=== PATIENT | male | born 1965 | race African-American/Black ===

== ENCOUNTER 2024-09-04 19:08 | Inpatient (IN) | payer OTHER, MEDICAID ==
[2024-09-04] VITALS (13 sets, daily range): BP systolic 100–134; BP diastolic 53–83; PULSE 72–144; RESP 16–33; TEMP 99.4–99.9; O2SAT 93–99
[~2024-09-04] VITALS: Ht 182.9 cm; Wt 109.4 kg
[2024-09-04] MEDS: cefTRIAXone 1GM/50ML D5W 50 ML IV ONE (09:00)
[2024-09-04] MEDS ORDERED: SODIUM CHLORIDE 0.9% 1,000 ML IV ONE (19:15)
[2024-09-04] MEDS: ANGIOMAX 250 MG VIAL IV ONE (19:26)
[2024-09-04] MEDS: fentaNYL CITRATE 100 MCG/2 ML VL ONE (19:26)
[2024-09-04] MEDS: MIDAZOLAM HCL 2MG/2ML 2ml VIAL (1mg/ml) ONE (19:27)
[2024-09-04] MEDS: SODIUM CHL 0.9% 0 ML ONE (19:27)
[2024-09-04] MEDS: LIDOCAINE 2%HCL (LOCAL ANESTH.) INJ 20ML MDV ONE (19:27)
--- NOTE | 2024-09-04 19:27 | ED.PDOC ---
HPI Comments 59-year-old male came to ER via EMS for chest pains. Aside from chronic back pains, patient denies any medical problems. Was just discharged yesterday from [facility] due to pneumonia. Patient went to urgent care earlier today due to chest pains. States he has been having diffuse chest pains, pressure, non radiating, worse when laying down, for the best 3 days associated with productive cough, abdominal pain and shortness of breath. Was advised by urgent Care the proceed to the nearest ER. EKG then took significant ST changes. Patient was given 324 aspirin while EN route to the emergency room. Chief Complaint: Chest pain Time Seen by MD: 19:26 Reviewed Notes: Adobe Architect Notes Allergies: Coded Allergies: NO KNOWN ALLERGIES (Unverified , 09/04/24) Information Source: Patient, Emergency Med Personnel Mode of Arrival: EMS Severity: Moderate Timing: Hours Duration: Since onset Prehospital treatment: 12 Lead EKG, ASA, Oxygen Location: Chest (R), Chest (L) Radiation: No Radiation Quality: Pressure Onset: With Light Exertion Cardiac Risk Factors: Smoker PE Risk Factors: None History of: None Modifying Factors: Nothing Associated Signs and Symptoms: SOB, Abdominal Pain, Back Pain Review of Systems REVIEW OF SYSTEMS: No fever, no chills, or fatigue HEENT: No sore throat, no earache, no congestion, no neck pain. Cardiac: (+) chest pain. No palpitations. Lungs: (+) shortness of breath, no cough. GI: No nausea, no vomiting, no diarrhea, no constipation, no abdominal pain : No dysuria, frequency, or urgency. No hematuria. Musculoskeletal: No joint pain , no joint swelling, no extremity edema. Skin: No rash, no itching. Neuro: No headache, no dizziness, no weakness Vital Signs Vital Signs Date Time Temp Pulse Resp B/P (MAP) Pulse Ox O2 Delivery O2 Flow Rate FiO2 09/04/24 19:39 133 09/04/24 19:35 99.7 32 80/62 (68) 92 99.7 Physical Exam General: Awake, alert and oriented. No acute distress. Skin: Skin in warm, dry and intact. Appropriate color for ethnicity. Nailbeds pink with no cyanosis. HEENT: The head is normocephalic and atraumatic. Conjunctivae are clear without exudates or hemorrhage. Sclera is non-icteric. EOM are intact. No signs of nystagmus. Eyelids are normal in appearance without swelling or lesions. Oral mucosa is pink and moist Neck: The neck is supple with normal range of motion. No JVD. Cardiac: Irregularly irregular rhythm. No murmurs, gallops, or rubs are auscultated. Respiratory: No signs of respiratory distress. Diminished breath sounds B/L Abdominal: Abdomen is soft, non-tender without distention. Bowel sounds are present and normoactive in all four quadrants. Extremities: Upper and lower extremities are atraumatic in appearance without deformity or edema. Neurological: The patient is awake, alert and oriented to person, place, and time with normal speech. Speech is clear. There is no facial asymmetry. Psychiatric: Appropriate mood and affect. Good judgement and insight. No visual or auditory hallucinations. Past Medical History Past Medical History (Other): Chronic back pain Surgical History: Denies all surgeries Family History Family History: Reviewed,noncontributory to illness Social History Smoker: Cigarettes, Less Than 1 Pack/Day Alcohol: Denies ETOH Use Drugs: Denies Drug Use Lives In: Home Was a procedure done? Was a procedure done?: No CP Differential Dx Differential Diagnosis: A-fib, Angina, Anxiety / Panic Attack, Electrolyte Disorder, Hyperventilation Differential Diagnosis: CHF Differential Diagnosis: Angina, Chest Wall Pain, Costochondritis, Esophageal reflux/spasm, Gastritis, Myocardial Infarction, Pneumonia X-Ray, Labs, Meds, VS Vital Signs Date Time Temp Pulse Resp B/P (MAP) Pulse Ox O2 Delivery O2 Flow Rate FiO2 09/04/24 19:39 133 09/04/24 19:35 99.7 146 32 80/62 (68) 92 99.7 09/04/24 19:21 99.7 140 24 110/70 (83) 95 Lab Test 09/04/24 20:58 09/04/24 19:29 Range/Units Sodium Level Pending Potassium Level Pending Chloride Level Pending Carbon Dioxide Level Pending Anion Gap Pending Blood Urea Nitrogen Pending Creatinine Pending Glomerular Filtration Rate Calc Pending BUN/Creatinine Ratio Pending Serum Glucose Pending Calcium Level Pending Magnesium Level Pending Total Bilirubin Pending Aspartate Amino Transferase (AST) Pending Alanine Aminotransferase (ALT) Pending Alkaline Phosphatase Pending Total Protein Pending Albumin Pending Lipase Pending White Blood Count 11.9 H 4.4-10.8 10^3/uL Red Blood Count 3.66 L 4.5-5.90 10^6/uL Hemoglobin 11.1 L 13.5-17.5 g/dL Hematocrit 32.1 L 41.0-53.0 % Mean Corpuscular Volume 87.8 80.0-100.0 fL Mean Corpuscular Hemoglobin 30.4 28.0-32.0 pg Mean Corpuscular Hemoglobin Concent 34.6 32.0-36.0 g/dL Red Cell Distribution Width 17.7 H 11.8-14.3 % Platelet Count 428 140-450 10^3/uL Mean Platelet Volume 7.3 6.9-10.8 fL Neutrophils (%) (Auto) 37.0-80.0 % Lymphocytes (%) (Auto) 10.0-50.0 % Monocytes (%) (Auto) 0.0-12.0 % Basophils (%) (Auto) 0.0-2.0 % Neutrophils # (Auto) 1.6-8.6 10 ^3/uL Lymphocytes # (Auto) 0.4-5.4 10 ^3/uL Monocytes # (Auto) 0-1.3 10 ^3/uL Differential Total Cells Counted 100.0 100 Neutrophils % (Manual) 60 37.0-80.0 Band Neutrophils % (Manual) 13 Lymphocytes % (Manual) 23 10.0-50.0 Monocytes % (Manual) 4 0-12 Eosinophils % (Manual) 0 0-7 Basophils % (Manual) 0 0.0-2.0 Metamyelocytes % (manual) 0 Myelocytes % (Manual) 0 Promyelocytes % (Manual) 0 Blast Cells % (Manual) 0 Reactive Lymphocytes 0 Platelet Estimate Adequate Prothrombin Time 11.4 9.3-11.8 sec Prothrombin Time INR 1.08 0.9-1.15 Activated Partial Thromboplast Time 24.1 L 24.5-34.5 SEC D-Dimer, Quantitative 1.26 H 0.0-0.49 mg/L FEU Troponin I High Sensitivity 167 *H </=54 ng/L B-Type Natriuretic Peptide 331.58 0-100 pg/mL Current Medications Medications (Trade) Dose Ordered Sig/Leelee Route Start Time Stop Time Status Last Admin Diltiazem HCl (Cardizem Injection) 20 mg ONCE ONCE IV 1/10/25 19:30 09/04/24 19:31 DC 09/04/24 19:32 Time of 1ST Reevaluation: 19:19 Reevaluation 1ST: Unchanged Patient Education/Counseling: Diagnosis, Treatment, Other (DIAGNOSIS AND RECOMMENDATION FOR ADMISSION) Family Education/Counseling: No Family Present Departure 1 Departure Time of Disposition: 19:40 Impression: Primary Impression: Chest pain Additional Impression: Atrial fibrillation with RVR Disposition: ADMITTED INPATIENT Condition: Guarded Comments 59-YEAR-OLD MALE WHO PRESENTED TO THE EMERGENCY DEPARTMENT WITH SEVERAL DAYS OF CHEST PAIN. EKG SHOWED ST ELEVATIONS IN MULTIPLE LEADS. THE CASE WAS DISCUSSED WITH CARDIOLOGY, PATIENT TRANSFERRED TO KERFER MACHINE OPERATOR FOR FURTHER EVALUATION AND TREATMENT. Number & Complexity of Problems Addressed 1 acute or chronic illness that poses a threat to life or bodily function: Chest pain, atrial fibrillation with RVR Extensive evaluation was performed to identify or rule out: Differential diagnoses considered include acute ischemic coronary syndrome, aortic dissection, cardiac tamponade, mediastinitis, pulmonary embolus, pneumothorax, tension pneumothorax, esophageal rupture, coronary artery vasospasm, myocarditis, pericarditis, pneumonia, pulmonary edema, esophageal tear, pancreatitis, aortic stenosis, dilated cardiomyopathy, hypertrophic cardiomyopathy, mitral valve prolapse, malignancy, pleuritis, pneumomediastinum, primary pulmonary hypertension, cholecystitis, esophageal spasm, esophagus, gastritis, GERD, peptic ulcer disease, costochondritis, fibromyalgia, rib fracture, herpes zoster, radicular syndromes, thoracic outlet syndrome, somatization. Amount and/or Complexity of Data to be Reviewed/Analyzed Tests reviewed: See diagnostic results section Documents reviewed: Records from urgent care Independent historian: EMS Independent interpretation of tests: EKG shows atrial fibrillation at a rate of 133, nonspecific ST elevations in multiple leads. Discussion of management or test interpretation with external physician/other qualified health doggy daycare activities director: 7:[address] Green, cardiology. Recommendation is emergent cardiac catheterization to rule out ACS. At this time EKG is suspicious for STEMI versus pericarditis. He recommends against heparin, recommends adding aspirin. Risk of Complications and/or Morbidity or Mortality of Patient Management Patient was at high risk of morbidity from additional diagnostic testing or treatment Drug therapy requiring intensive monitoring for toxicity: Diltiazem IV Decision regarding elective major surgery with identified patient or procedure risk factors: N/A Decision regarding emergency major surgery: N/A Decision regarding hospitalization or escalation of hospital level of care: Patient admitted for further treatment, evaluation and monitoring. Decision not to resuscitate or to de-escalate care because of poor prognosis: N/A Parenteral controlled substances: N/A Critical Care Note Critical Care Time?: Yes (35 min-critical care time only) Critical care comment: STEMI, AFIB WITH RVR Stability Stability form required: No Heart Score Heart Score: Heart Score Response (Comments) Value History Moderate Suspicious [address]-Deviation 2 Age 45-64 1 Risk Factors 1 or 2 risk factors 1 Troponin Normal limit 0 Total 5 I personally scribed for JOJO TEJADA MD ([email or web address]) on 09/04/24 at 19:27. Electronically submitted by Bobby Conner ([email or web address]). I personally scribed for JOJO TEJADA MD ([email or web address]) on 09/04/24 at 19:34. El ectronically submitted by Bobby Conner ([email or web address]). JOJO TEJADA MD Sep 04, 2024 19:27
[2024-09-04] MEDS: MORPHINE SULFATE INJ 2 MG/ml SYRG IV ONE (19:30)
[2024-09-04] MEDS: ONDANSETRON HCL 4 MG/2 ML VIAL IV ONE (19:30)
[2024-09-04] MEDS: IODIXANOL 320MG/ML 100ML BTL IV ONE (19:31)
[2024-09-04] MEDS: dilTIAZem 25 MG/5 ML VIAL IV ONE ×2 (19:32)
[2024-09-04] MEDS: ASPirin 81 mg TAB PO ONE (19:37)
--- NOTE | 2024-09-04 19:57 | DVH ---
CHEST RADIOGRAPH Indication: cp Technique: Single frontal view of the chest was obtained COMPARISON: None FINDINGS: Lines and Tubes: None Lungs: Moderate interstitial pulmonary edema. Pleura: No effusion. No pneumothorax. Cardiomediastinal contours: Cardiomegaly Bones: Unremarkable IMPRESSION: 1. Moderate interstitial pulmonary edema in the setting of cardiomegaly.
--- NOTE | 2024-09-04 19:57 | ECG ---
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
--- NOTE | 2024-09-04 19:59 | ECG ---
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
[2024-09-04] MEDS: ATROPINE SULF 1 MG/10ml SYR ONE (20:04)
[2024-09-04 20:07] LABS: Hematocrit 32.1 % (41.0-53.0); Hemoglobin 11.1 g/dL (13.5-17.5); Mean Corpuscular Hemoglobin 30.4 pg (28.0-32.0); Mean Corpuscular Hgb Conc. 34.6 g/dL (32.0-36.0); Mean Corpuscular Volume 87.8 fL (80.0-100.0); Platelet Count (auto) 428 10^3/uL (140-450); Red Blood Cells 3.66 10^6/uL (4.5-5.90); Red Cell Distribution Width 17.7 % (11.8-14.3); White Blood Cell 11.9 10^3/uL (4.4-10.8)
[2024-09-04] MEDS: DOPamine 1600MCG/ML D5W 250 ML IV ONE (20:10)
[2024-09-04 20:14] LABS: Basophils % (manual) 0 (0.0-2.0); Blast Cells 0; Eosinophils % (manual) 0 (0-7); Metamyelocytes % 0; Myelocytes % 0; Promyelocytes % 0; Reactive Lymphocytes 0
[2024-09-04 20:22] LABS: INR 1.08 (0.9-1.15); Partial Thromboplastin Time 24.1 SEC (24.5-34.5); Prothrombin Time 11.4 sec (9.3-11.8)
[2024-09-04 20:46] LABS: Band Neutrophils % (manual) 13; Lymphocytes % (manual) 23 (10.0-50.0); Monocytes % (manual) 4 (0-12); Platelet Estimate Adequate
[2024-09-04] MEDS ORDERED: DOPamine 1600MCG/ML D5W 250 ML IV SCH (21:00)
[2024-09-04] MEDS ORDERED: MORPHINE SULFATE INJ 2 MG/ml SYRG IV PRN (21:00)
[2024-09-04] MEDS ORDERED: NITROGLYCERIN 0.4 MG SL TAB SL PRN (21:00)
--- NOTE | 2024-09-04 21:08 | DVHINCON2 ---
Date of service: Sep 04, 2024 Referring Physician Wagner Reason for Consultation STEMI History of Present Illness This is a 59-year-old male without any past medical history who presents to the ED by EMS with c/o chest pains. Patient states he has been having diffuse chest pains, pressure, non radiating, worse when laying down, for the best 3 days associated with productive cough, abdominal pain and shortness of breath. Patient was just discharged yesterday from [facility] due to pneumonia. Patient went to a local urgent care earlier today due to chest pains and was advised by urgent Care the proceed to the nearest ED. EKG showed significant ST changes and EMS administered 324 aspirin while EN route here. EKG here in the ED consistent with STEMI. Code STEMI was called. I seen the patient at bedside within a few minutes. Patient advised for emergency cardiac cath. Patient was admitted to the hospital. I am asked to consult on this patient. Allergies: Coded Allergies: NO KNOWN ALLERGIES (Unverified , 09/04/24) Review of Systems REVIEW OF SYSTEMS: No fever, no chills, or fatigue HEENT: No sore throat, no earache, no congestion, no neck pain. Cardiac: (+) chest pain. No palpitations. Lungs: (+) shortness of breath, no cough. GI: No nausea, no vomiting, no diarrhea, no constipation, no abdominal pain : No dysuria, frequency, or urgency. No hematuria. Musculoskeletal: No joint pain , no joint swelling, no extremity edema. Skin: No rash, no itching. Neuro: No headache, no dizziness, no weakness Vital Signs Vital Signs Date Time Temp Pulse Resp B/P (MAP) Pulse Ox O2 Delivery O2 Flow Rate FiO2 09/04/24 19:35 99.7 146 32 80/62 (68) 92 99.7 Physical Exam GENERAL: Awake, alert, oriented. LUNGS: Clear. CARDIOVASCULAR: Heart sounds are good. ABDOMEN: Soft. Labs/Diagnostic Data Labs Test 09/04/24 19:29 Range/Units Assessment STEMI. Chest pain. Dilated cardiomyopathy. Plan/Recommendation I agree with your ongoing assessment and care of plan. Cardiac cath. Risks and benefits discussed with the patient. Monitor on telemetry. Heparin drip per protocol. Morphine for pain management. Additional plan as per the hospital course. Critical care time of 90 minutes provided to include time spent evaluation of patient at bedside, when appropriate patient/family education for diagnosis, treatment plan, review of pertinent medical information and discussion of care with specialty providers and PCP. Plan discussed with: Patient JOSIE ROPER MD Sep 04, 2024 20:02
[2024-09-04] MEDS ORDERED: HYDROMORPHONE HCL 1 MG/ML INJ IV PRN (21:45)
[2024-09-04] MEDS: HYDROmorphone HCL 2 MG/ML VL/or syr ONE (22:03)
[2024-09-04 22:18] LABS: Alanine Aminotransferase 28 U/L (7-40); Alkaline Phosphatase 78 U/L (46-116); Anion Gap 5 (5-15); Aspartate Aminotransferase 25 U/L (13-40); BUN/Creatinine Ratio 21.1 (10.0-20.0); Blood Urea Nitrogen 19 mg/dL (9-23); Carbon Dioxide 20 mmol/L (20-31); Chloride 103 mmol/L (98-107); Magnesium 1.8 mg/dL (1.6-2.6); Potassium 4.6 mmol/L (3.5-5.1)
[2024-09-04 22:19] LABS: Bilirubin, Total 0.3 mg/dL (0.2-1.0)
[2024-09-04 22:20] LABS: Calcium 8.2 mg/dL (8.7-10.4); Glucose 116 mg/dL (74-106); Sodium 128 mmol/L (136-145)
[2024-09-04] MEDS: DOBUTamine 1000MCG/ML 250 ML IV SCH (22:29)
[2024-09-04] MEDS: FUROSEMIDE INJECTION 100 MG in SODIUM CHL 0.9% 100 ML IV SCH (22:30)
[2024-09-04 22:31] LABS: Total Protein 8.5 g/dL (5.7-8.2)
[2024-09-04 22:39] LABS: Lipase 28 U/L (12-53)
[2024-09-04] MEDS: HYDROcodone-ACET 5/325MG TAB PO PRN (23:21)
[2024-09-04] MEDS: cefTRIAXone 1GM/50ML D5W 50 ML IV SCH (23:31)
[2024-09-05] VITALS (115 sets, daily range): BP systolic 76–136; BP diastolic 32–91; PULSE 60–89; RESP 10–32; TEMP 98–99.8; O2SAT 90–100
[2024-09-05] MEDS: ENOXAPARIN SOD 60 MG/0.6 ML SYRINGE SC ONE (02:23)
[2024-09-05 04:33] LABS: Basophils # (auto) 0 10 ^3/uL (0-0.2); Basophils % (auto) 0.3 % (0.0-2.0); Eosinophils # (auto) 0 10 ^3/uL (0-0.8); Hematocrit 29.6 % (41.0-53.0); Hemoglobin 10.2 g/dL (13.5-17.5); Lymphocytes # (auto) 1.4 10 ^3/uL (0.4-5.4); Lymphocytes % (auto) 10.3 % (10.0-50.0); Mean Corpuscular Hemoglobin 30.5 pg (28.0-32.0); Mean Corpuscular Hgb Conc. 34.3 g/dL (32.0-36.0); Mean Corpuscular Volume 88.9 fL (80.0-100.0); Monocytes # (auto) 1.3 10 ^3/uL (0-1.3); Monocytes % (auto) 9.6 % (0.0-12.0); Neutrophils # (auto) 10.7 10 ^3/uL (1.6-8.6); Neutrophils % (auto) 79.8 % (37.0-80.0); Platelet Count (auto) 316 10^3/uL (140-450); Red Blood Cells 3.33 10^6/uL (4.5-5.90); Red Cell Distribution Width 17.9 % (11.8-14.3); White Blood Cell 13.4 10^3/uL (4.4-10.8)
[2024-09-05 04:45] LABS: Anion Gap 6 (5-15); Carbon Dioxide 21 mmol/L (20-31); Chloride 102 mmol/L (98-107); Potassium 4.5 mmol/L (3.5-5.1)
[2024-09-05 04:48] LABS: Calcium 8.4 mg/dL (8.7-10.4); Sodium 129 mmol/L (136-145)
[2024-09-05 04:51] LABS: BUN/Creatinine Ratio 19.5 (10.0-20.0); Blood Urea Nitrogen 16 mg/dL (9-23)
[2024-09-05 05:07] LABS: Glucose 161 mg/dL (74-106)
[2024-09-05] MEDS: ONDANSETRON HCL 4 MG/2 ML VIAL IV ONE (06:30)
[2024-09-05 07:35] LABS: Opiate Scree,Urine Neg (NEGATIVE); Phencyclidine Screen, Urine Neg (NEGATIVE)
[2024-09-05 07:44] LABS: Amphetamine Screen, Urine Neg (NEGATIVE); Barbiturate Scree,Urine Neg (NEGATIVE); Benzodiazephine Screen, Urine Neg (NEGATIVE); Cannabinoid Screen, Urine Neg (NEGATIVE); Cocaine Screen, Urine Neg (NEGATIVE)
[2024-09-05] MEDS: ONDANSETRON HCL 4 MG/2 ML VIAL ONE (08:00)
[2024-09-05] MEDS: PANTOPRAZOLE 40 MG/10 ML VIAL INJ IV SCH (11:12)
[2024-09-05] MEDS: ENOXAPARIN SOD 60 MG/0.6 ML SYRINGE SC SCH ×2 (11:12→22:38)
[2024-09-05] MEDS ORDERED: ONDANSETRON HCL 4 MG/2 ML VIAL IV PRN (14:00)
[2024-09-05] MEDS: DOBUTamine 1000MCG/ML 250 ML IV SCH (18:43)
--- NOTE | 2024-09-05 20:02 | DVHINCON2 ---
Date of service: Sep 05, [address] Yosi Green Reason for Consultation Arrhythmia History of Present Illness This is a 59-year old male who initially presented (09/04/2024) with diffuse chest pain with associated cough, abdominal pain and shortness of breath for approximately 3 days prior to arrival. Reports indicate the patient was discharged from [facility] the day prior to arrival at this facility. Due to the pains, patient underwent subsequent evaluation at urgent care and was advised to go to ED precipitating his arrival. 12-lead electrocardiogram en route revealed significant ST changes which patient was administered 325mg Aspirin prior to arrival. Upon ED arrival initial 12-lead electrocardiogram was found consistent with STEMI which patient underwent emergent cardiac catheterization (09/04/2024) revealing no warranted coronary revascularization however revealed presence of a severely reduced LV function of 20% by left ventriculogram. During the cardiac catheterization, it was reported the patient had experienced frequent pauses la sting up to 5-7 seconds requiring implantation of a temporary pacemaker which remains present at time of consultation (current configurations at time of consultation: rate: 60, mA: 6.0, sensitivity: 2.0 mV). At present time of consultation, telemetry reveals sinus rhythm with occasional ventricular pacing. As the patient underwent cardiac catheterization revealing no warranted coronary vascularization and subsequently found to have a severely reduced LV function by ventriculogram superimposed on pauses lasting up to 7 seconds requiring use of a temporary pacemaker, Electrophysiology services have now been involved by Interventional Cardiology request to evaluate the patient for potential AICD implantation. Past Medical History Reviewed Past Surgical History Reviewed Family History: Colon cancer G8 MOTHER Ischemic heart disease G8 FATHER Allergies: Coded Allergies: NO KNOWN ALLERGIES (Unverified , 09/04/24) Current Medications Current Medications Medications (Trade) Dose Ordered Sig/Leelee Route PRN Reason Start Time Stop Time Status Last Admin Dopamine HCl/ Dextrose 250 ml @ 21.3 mls/hr [id number] IV 09/04/24 21:00 09/04/24 22:50 DC Nitroglycerin (Ntrostat Sublingual) 0.4 mg Q5MINP PRN SL FOR CHEST PAIN 09/04/24 21:00 Morphine Sulfate 2 mg Q30M PRN IV FOR CHEST PAIN 09/04/24 21:00 Dobutamine HCl/ Dextrose 250 ml @ 0 mls/hr Q0M IV 09/04/24 21:45 09/05/24 17:55 DC 09/05/24 12:05 Furosemide 100 mg/ Sodium Chloride 110 ml @ 2.2 mls/hr Q24H IV 09/04/24 21:45 09/04/24 22:30 Hydromorphone HCl (Dilaudid Innjection) 0.5 mg Q3HPRN PRN IV PAIN SCALE 7 THRU 10 09/04/24 21:45 Acetaminophen/ Hydrocodone Bitart ([place] 5/325MG Tab) 1 tab Q4HPRN PRN PO MODERATE PAIN (4-6 PAIN SCALE) 09/04/24 21:45 09/04/24 23:21 Ceftriaxone Sodium 50 ml @ 100 mls/hr Q12HR IV 09/05/24 10:00 09/04/24 23:31 Enoxaparin Sodium (Lovenox) 60 mg Q12HR SC 09/05/24 10:00 09/05/24 13:01 DC 09/05/24 11:12 Pantoprazole Sodium (Protonix) 40 mg BID IV 09/05/24 10:00 09/05/24 11:12 Enoxaparin Sodium (Lovenox) 100 mg Q12HR SC 09/05/24 22:00 Ondansetron HCl (Zofran) 4 mg Q4HPRN PRN IV NAUSEA / VOMITING 09/05/24 14:00 Dobutamine HCl/ Dextrose 250 ml @ 30 mls/hr Q8H20M IV 09/05/24 18:00 09/05/24 18:43 Review of Systems A 14-point review of systems is negative unless otherwise noted above Vital Signs Vital Signs Date Time Temp Pulse Resp B/P (MAP) Pulse Ox O2 Delivery O2 Flow Rate FiO2 09/05/24 18:43 117/58 09/05/24 18:00 73 09/05/24 18:00 14 97 Nasal Cannula* 2 28 09/05/24 16:30 98.5 98.5 Physical Exam Heart: S1 and S2 regular. The patient is in sinus rhythm. Lungs: Scattered rhonchi. Abdomen: Benign. Extremities: Distal pulses palpable, 2+. Minimal evidence for peripheral edema Labs/Diagnostic Data Labs Test 09/05/24 10:17 09/05/24 06:48 09/05/24 03:45 09/04/24 22:25 Range/Units Urine Opiates Screen Neg NEGATIVE Urine Fentanyl Screen Pos NEGATIVE Urine Barbiturates Screen Neg NEGATIVE Urine Phencyclidine Screen Neg NEGATIVE Urine Amphetamines Screen Neg NEGATIVE Urine Benzodiazepines Screen Neg NEGATIVE Urine Cocaine Screen Neg NEGATIVE Urine Cannabinoids Screen Neg NEGATIVE White Blood Count 13.4 H 4.4-10.8 10^3/uL Red Blood Count 3.33 L 4.5-5.90 10^6/uL Hemoglobin 10.2 L 13.5-17.5 g/dL Hematocrit 29.6 L 41.0-53.0 % Mean Corpuscular Volume 88.9 80.0-100.0 fL Mean Corpuscular Hemoglobin 30.5 28.0-32.0 pg Mean Corpuscular Hemoglobin Concent 34.3 32.0-36.0 g/dL Red Cell Distribution Width 17.9 H 11.8-14.3 % Platelet Count 316 140-450 10^3/uL Mean Platelet Volume 6.7 L 6.9-10.8 fL Neutrophils (%) (Auto) 79.8 37.0-80.0 % Lymphocytes (%) (Auto) 10.3 10.0-50.0 % Monocytes (%) (Auto) 9.6 0.0-12.0 % Eosinophils (%) (Auto) 0.0 0.0-7.0 % Basophils (%) (Auto) 0.3 0.0-2.0 % Neutrophils # (Auto) 10.7 H 1.6-8.6 10 ^3/uL Lymphocytes # (Auto) 1.4 0.4-5.4 10 ^3/uL Monocytes # (Auto) 1.3 0-1.3 10 ^3/uL Eosinophils # (Auto) 0 0-0.8 10 ^3/uL Basophils # (Auto) 0 0-0.2 10 ^3/uL Nucleated Red Blood Cells 0.0 % Sodium Level 129 L 136-145 mmol/L Potassium Level 4.5 3.5-5.1 mmol/L Chloride Level 102 98-107 mmol/L Carbon Dioxide Level 21 20-31 mmol/L Anion Gap 6 5-15 Blood Urea Nitrogen 16 9-23 mg/dL Creatinine 0.82 0.700-1.30 mg/dL Glomerular Filtration Rate Calc 102 >90 mL/min BUN/Creatinine Ratio 19.5 10.0-20.0 Serum Glucose 161 H 74-106 mg/dL Lactic Acid Level 0.7 0.4-2.0 mmol/L Calcium Level 8.4 L 8.7-10.4 mg/dL Thyroid Stimulating Hormone (TSH) 0.71 0.55-4.78 uIU/mL Troponin I High Sensitivity 176 *H </=54 ng/L Test 09/04/24 19:29 Range/Units Differential Total Cells Counted 100.0 100 Neutrophils % (Manual) 60 37.0-80.0 Band Neutrophils % (Manual) 13 Lymphocytes % (Manual) 23 10.0-50.0 Monocytes % (Manual) 4 0-12 Eosinophils % (Manual) 0 0-7 Basophils % (Manual) 0 0.0-2.0 Metamyelocytes % (manual) 0 Myelocytes % (Manual) 0 Promyelocytes % (Manual) 0 Blast Cells % (Manual) 0 Reactive Lymphocytes 0 Platelet Estimate Adequate Prothrombin Time 11.4 9.3-11.8 sec Prothrombin Time INR 1.08 0.9-1.15 Activated Partial Thromboplast Time 24.1 L 24.5-34.5 SEC D-Dimer, Quantitative 1.26 H 0.0-0.49 mg/L FEU Magnesium Level 1.8 1.6-2.6 mg/dL Total Bilirubin 0.3 0.2-1.0 mg/dL Aspartate Amino Transferase (AST) 25 13-40 U/L Alanine Aminotransferase (ALT) 28 7-40 U/L Alkaline Phosphatase 78 46-116 U/L B-Type Natriuretic Peptide 331.58 0-100 pg/mL Total Protein 8.5 H 5.7-8.2 g/dL Albumin 3.0 L 3.2-4.8 g/dL Lipase 28 12-53 U/L Microbiology Date/Time Source Procedure Growth Status 09/05/24 02:23 Nose MRSA Screen - Final Complete Plan/Recommendation ASSESSMENT: This is a 59-year old male who initially presented (09/04/2024) with diffuse chest pain with associated cough, abdominal pain and shortness of breath for approximately 3 days prior to arrival. Reports indicate the patient was discharged from [facility] the day prior to arrival at this facility. Due to the pains, patient underwent subsequent evaluation at urgent care and was advised to go to ED precipitating his arrival. 12-lead electrocardiogram en route revealed significant ST changes which patient was administered 325mg Aspirin prior to arrival. Upon ED arrival initial 12-lead electrocardiogram was found consistent with STEMI which patient underwent emergent cardiac catheterization (09/04/2024) revealing no warranted coronary revascularization however revealed presence of a severely reduced LV function of 20% by left ventriculogram. During the cardiac catheterization, it was reported the patient had experienced frequent pauses lasting up to 5-7 seconds requiring implantation of a temporary pacemaker which remains present at time of consultation (current configurations at time of consultation: rate: 60, mA: 6.0, sensitivity: 2.0 mV). At present time of consultation, telemetry reveals sinus rhythm with occasional ventricular pacing. As the patient underwent cardiac catheterization revealing no warranted coronary vascularization and subsequently found to have a severely reduced LV function by ventriculogram superimposed on pauses lasting up to 7 seconds requiring use of a temporary pacemaker, Electrophysiology services have now been involved by Interventional Cardiology request to evaluate the patient for potential AICD implantation. STEMI Status post cardiac catheterization, no warranted revascularization Cardiac pauses up to 7 seconds, requiring implantation of temporary pacemaker Severely reduced LV function of 20% per ventriculogram (09/04/2024) Paroxysmal atrial fibrillation with RVR, currently sinus Pneumonia, community acquired QRS < 120ms ELECTROPHYSIOLOGY SUGGESTIONS FOR MANAGEMENT: As the patient underwent cardiac catheterization revealing no warranted coronary revascularization and subsequently found to have a severely reduced LV function by ventriculogram superimposed on pauses lasting up to 7 seconds requiring implantation of a temporary pacemaker, Electrophysiology services have now been involved by Interventional Cardiology request to evaluate the patient for potential AICD implantation. In observation of the aforementioned above, if LVEF is found reduced by 2D Echocardiogram (pending), patient benefits from undergoing AICD implantation for primary prevention against sudden cardiac however if LVEF is preserved by 2D Echocardiogram, patient benefits from undergoing permanent pacemaker implantation secondary to the aforementioned pauses. Benefits, risks, and alternatives were discussed at length with the patient which he is agreeable to the plan of care. Will await ordered 2D Echocardiogram. Proceed with use of temporary pacemaker during the interim. Proceed with close rate and rhythm surveillance. To sustain potassium levels > 4.0 as well as magnesium levels > 2.0. Remainder of cardiac management as per Interventional Cardiology. Will proceed to follow from an EP perspective. Full AC for CVA prophylaxis is advised (on therapeutic Lovenox) Empiric antibiotic therapy in the setting of pneumonia Proceed with close rate and rhythm surveillance Proceed with close hemodynamic surveillance Proceed with optimized blood pressure control Transfuse to sustain HGB level above 7.0 Sustain Magnesium level greater than 2.0 Sustain Potassium level greater than 4.0 Follow up renal function and electrolytes Management in the ICU Follow up primary cardiology recommendations Will proceed to follow from a cardiac perspective Further recommendations per clinical progression All available diagnostic labs, EKG's, and images were personally reviewed Patient's status, findings, and plan of care was reviewed and discussed with supervising physician Dr. Putnam, who is in agreement with current plan of care. Plan of care discussed with and agreed upon by patient / primary RN Prognosis: Guarded Thank you for allowing me to participate in the care of this patient. Further recommendations based on patients clinical course and progression, primary attending, and other consultants. Will continue to follow with primary attending. If you have any questions or concerns, please do not hesitate to contact me. A total of 75 minutes was spent reviewing the patient record, examining the patient, making a diagnostic and therapeutic plan, discussing this plan with medical personnel, following up on diagnostic studies and following the patient for clinical stability excluding any and all procedures. At least 50% of this time was spent in direct, [id number] contact. Plan discussed with: Patient (Patient and Primary RN ) JOSH RYAN Sep 05, 2024 20:02
--- NOTE | 2024-09-05 21:20 | DVHPN2 ---
Progress Note - Dictate Date Seen: Sep 05, 2024 Medical Necessity Reason Pt with a Central, PICC or Fol: No Subjective Patient was seen and evaluated in follow up in the ICU. Patient is s/p emergency angiogram. Patient on Dobutamine drip. Patient needs AICD placement. He complains of nausea with hiccups. UDS + Fentanyl. NA 129, WBC 13. MRSA is negative. vital signs Vital Sign Date Time Temp Pulse Resp B/P (MAP) Pulse Ox O2 Delivery O2 Flow Rate FiO2 09/05/24 15:00 66 25 88/44 (59) 96 09/05/24 14:00 Nasal Cannula* 2 28 09/05/24 12:01 98.0 98.0 Total Intake and Output 09/04/24 09/04/24 09/05/24 15:00 23:00 07:00 Intake Total 36.28 ml 503.96 ml Output Total 1950 ml Balance 36.28 ml -1446.04 ml medications Current Medications Medications Dose Ordered Sig/Leelee Route Start Time Stop Time Status Last Admin Dose Admin Nitroglycerin 0.4 mg Q5MINP PRN SL 09/04/24 21:00 Morphine Sulfate 2 mg Q30M PRN IV 09/04/24 21:00 Dobutamine HCl/ Dextrose 250 ml @ 0 mls/hr Q0M IV 09/04/24 21:45 09/05/24 12:05 34.08 MLS/HR Furosemide 100 mg/ Sodium Chloride 110 ml @ 2.2 mls/hr Q24H IV 09/04/24 21:45 09/04/24 22:30 2.2 MLS/HR Hydromorphone HCl 0.5 mg Q3HPRN PRN IV 09/04/24 21:45 Acetaminophen/ Hydrocodone Bitart 1 tab Q4HPRN PRN PO 09/04/24 21:45 09/04/24 23:21 1 TAB Ceftriaxone Sodium 50 ml @ 100 mls/hr Q12HR IV 09/05/24 10:00 09/04/24 23:31 100 MLS/HR Pantoprazole Sodium 40 mg BID IV 09/05/24 10:00 09/05/24 11:12 40 MG Enoxaparin Sodium 100 mg Q12HR SC 09/05/24 22:00 Ondansetron HCl 4 mg Q4HPRN PRN IV 09/05/24 14:00 objective GENERAL: Awake, alert, oriented. LUNGS: Clear. CARDIOVASCULAR: Heart sounds are good. ABDOMEN: Soft. laboratory and microbiology Laboratory Tests 09/05/24 03:45 Test 09/05/24 03:45 Range/Units Serum Glucose 161 H 74-106 mg/dL Problem List STEMI. Chest pain. Dilated cardiomyopathy. Assessment/Plan Continued all current supportive medical care. Morphine and [place] for pain management. IV antibiotics as ordered. DVT and GI prophylactics. Diuretics with Lasix. Dobutamine drip. Additional plan as per the hospital course. Critical care time of 45 minutes provided to include time spent evaluation of patient at bedside, when appropriate patient/family education for diagnosis, treatment plan, review of pertinent medical information and discussion of care with specialty providers and PCP. Plan discussed with: Patient JOSIE ROPER MD Sep 05, 2024 16:53
--- NOTE | 2024-09-05 21:32 | DVHSR ---
APPROVED REPORT EXAM: Two-dimensional and M-mode echocardiogram with Doppler and color Doppler. Blood Pressure: 116/58 mmHg INDICATION Post coronary angiogram Surgery/Intervention Pacemaker: Temporary pacemaker RISK FACTORS Height: 6'0", Weight: 238 DIMENSIONS LVDd6.1 (3.8-5.7cm)LA (2D)5.0 (1.9-4.0cm)Aortic Root3.5 (2.0-3.7cm) LVDs3.9 (2.5-4.0cm)LA (MM) (1.9-4.0cm)Aortic Cusp Exc2.0 (1.5-2.0cm) EF (%) 60.0 (55-70%)Rt. Atrium5.0 (1.9-4.0cm)Asc. Aorta cm IVSd1.3 (0.7-1.1cm)RV (D)4.1 (1.8-2.4cm) PWd1.2 (0.7-1.1cm) Mitral Valve MitralMitral Stenosis E wave1.15m/sMV Mean GR.mmHg A wave0.36m/sMV Peak GR.mmHg E/A ratio3.22D MVAcm2 DECEL [id number] 1/2 Timems Aortic Valve Aortic ValveAortic Stenosis V11.49m/Abran Mean GR.10mmHg V22.40m/Abran Peak GR.23mmHg LVOT Diameter2.2 (1.8-2.4cm)Doppler AVA2.36cm2 Pulmonic Valve V21.46m/s Tricuspid Valve TR Velocity2.88m/s [id number] Conclusion LV EJECTION FRACTION IS 60% DYSKINESIS OF IVS NORMAL VALVES NO EFFUSION MODERATELY DILATED RV AND RA RVSP IS 41 MM OF HG AND IS ELEVATED NORMAL RV FUNCTION PACER IN RIGHT CARDIAC CHAMBERS
--- NOTE | 2024-09-05 23:39 | DVHINCON2 ---
Date of service: Sep 05, 2024 Referring Physician Kellen Green MD Reason for Consultation Pneumonia, pulmonary edema. History of Present Illness A 59-year-old man with no significant past medical history who presented to the ED on 09/04/24 by EMS with c/o chest pains. Patient reported ongoing diffuse chest pains, pressure, nonradiating, worse when lying down, for 3 days prior to presentation associated with productive cough, abdominal pain and shortness of breath. Patient was just discharged on 09/03/24 from [facility] due to pneumonia. Patient went to a local urgent care earlier on day of presentation and was advised to proceed to the nearest ED. EKG showed significant ST changes and EMS administered 324 aspirin while EN route here. EKG in the ED consistent with STEMI. Code STEMI was called. Patient was advised for emergency cardiac cath. He was thus admitted for further care and pulmonary consultation is requ ested for evaluation and management of pneumonia, pulmonary edema. Review of Systems: 14-point review of systems negative unless otherwise noted above. Past Medical History: Denies Past Surgical History: Denies Medications: Reviewed. Allergies: No known drug allergies. Family History: Colon cancer, heart disease. Social History: Nonsmoker. No alcohol or illicit drug use. Family History: Colon cancer G8 MOTHER Ischemic heart disease G8 FATHER Allergies: Coded Allergies: NO KNOWN ALLERGIES (Unverified , 09/04/24) Current Medications Current Medications Medications (Trade) Dose Ordered Sig/Leelee Route PRN Reason Start Time Stop Time Status Last Admin Ceftriaxone Sodium 50 ml @ 100 mls/hr Q12HR IV 09/05/24 10:00 09/05/24 22:38 Enoxaparin Sodium (Lovenox) 60 mg Q12HR SC 09/05/24 10:00 09/05/24 13:01 DC 09/05/24 11:12 Pantoprazole Sodium (Protonix) 40 mg BID IV 09/05/24 10:00 09/05/24 22:37 Enoxaparin Sodium (Lovenox) 100 mg Q12HR SC 09/05/24 22:00 09/05/24 22:38 Ondansetron HCl (Zofran) 4 mg Q4HPRN PRN IV NAUSEA / VOMITING 09/05/24 14:00 Dobutamine HCl/ Dextrose 250 ml @ 30 mls/hr Q8H20M IV 09/05/24 18:00 09/05/24 18:43 Vital Signs Vital Signs Date Time Temp Pulse Resp B/P (MAP) Pulse Ox O2 Delivery O2 Flow Rate FiO2 09/05/24 22:30 97/55 09/05/24 21:45 70 20 97 09/05/24 20:00 98.3 98.3 09/05/24 20:00 Nasal Cannula* 2 28 Physical Exam Gen.: Patient lying in bed in no apparent distress. On supplemental oxygen. Head: Normocephalic, atraumatic. Eyes: EOMI/PERRLA. Ears: Normal hearing. Normal anatomy. Neck/trachea: Trachea midline, supple. Nose: Normal external anatomy. Mouth: Moist mucous membranes. Chest: Decreased air entry bilaterally. No wheezing or rhonchi. Cardiovascular: Positive S1, positive S2. Regular rate and rhythm. Abdomen: Positive bowel sounds in all 4 quadrants. Soft, non-tender, non- distended. : Deferred. Rectal: Deferred. Skin: Warm, dry. Intact. Extremities: 2+ radial pulses bilaterally. No lower extremity edema. Neuro: Awake, alert, oriented x3. No gross motor or sensory deficits. Cranial nerves II through XII intact. Gait not assessed. Labs/Diagnostic Data Labs Test 09/05/24 10:17 09/05/24 06:48 09/05/24 03:45 09/04/24 22:25 Range/Units Urine Opiates Screen Neg NEGATIVE Urine Fentanyl Screen Pos NEGATIVE Urine Barbiturates Screen Neg NEGATIVE Urine Phencyclidine Screen Neg NEGATIVE Urine Amphetamines Screen Neg NEGATIVE Urine Benzodiazepines Screen Neg NEGATIVE Urine Cocaine Screen Neg NEGATIVE Urine Cannabinoids Screen Neg NEGATIVE White Blood Count 13.4 H 4.4-10.8 10^3/uL Red Blood Count 3.33 L 4.5-5.90 10^6/uL Hemoglobin 10.2 L 13.5-17.5 g/dL Hematocrit 29.6 L 41.0-53.0 % Mean Corpuscular Volume 88.9 80.0-100.0 fL Mean Corpuscular Hemoglobin 30.5 28.0-32.0 pg Mean Corpuscular Hemoglobin Concent 34.3 32.0-36.0 g/dL Red Cell Distribution Width 17.9 H 11.8-14.3 % Platelet Count 316 140-450 10^3/uL Mean Platelet Volume 6.7 L 6.9-10.8 fL Neutrophils (%) (Auto) 79.8 37.0-80.0 % Lymphocytes (%) (Auto) 10.3 10.0-50.0 % Monocytes (%) (Auto) 9.6 0.0-12.0 % Eosinophils (%) (Auto) 0.0 0.0-7.0 % Basophils (%) (Auto) 0.3 0.0-2.0 % Neutrophils # (Auto) 10.7 H 1.6-8.6 10 ^3/uL Lymphocytes # (Auto) 1.4 0.4-5.4 10 ^3/uL Monocytes # (Auto) 1.3 0-1.3 10 ^3/uL Eosinophils # (Auto) 0 0-0.8 10 ^3/uL Basophils # (Auto) 0 0-0.2 10 ^3/uL Nucleated Red Blood Cells 0.0 % Sodium Level 129 L 136-145 mmol/L Potassium Level 4.5 3.5-5.1 mmol/L Chloride Level 102 98-107 mmol/L Carbon Dioxide Level 21 20-31 mmol/L Anion Gap 6 5-15 Blood Urea Nitrogen 16 9-23 mg/dL Creatinine 0.82 0.700-1.30 mg/dL Glomerular Filtration Rate Calc 102 >90 mL/min BUN/Creatinine Ratio 19.5 10.0-20.0 Serum Glucose 161 H 74-106 mg/dL Lactic Acid Level 0.7 0.4-2.0 mmol/L Calcium Level 8.4 L 8.7-10.4 mg/dL Thyroid Stimulating Hormone (TSH) 0.71 0.55-4.78 uIU/mL Troponin I High Sensitivity 176 *H </=54 ng/L Test 09/04/24 19:29 Range/Units Differential Total Cells Counted 100.0 100 Neutrophils % (Manual) 60 37.0-80.0 Band Neutrophils % (Manual) 13 Lymphocytes % (Manual) 23 10.0-50.0 Monocytes % (Manual) 4 0-12 Eosinophils % (Manual) 0 0-7 Basophils % (Manual) 0 0.0-2.0 Metamyelocytes % (manual) 0 Myelocytes % (Manual) 0 Promyelocytes % (Manual) 0 Blast Cells % (Manual) 0 Reactive Lymphocytes 0 Platelet Estimate Adequate Prothrombin Time 11.4 9.3-11.8 sec Prothrombin Time INR 1.08 0.9-1.15 Activated Partial Thromboplast Time 24.1 L 24.5-34.5 SEC D-Dimer, Quantitative 1.26 H 0.0-0.49 mg/L FEU Magnesium Level 1.8 1.6-2.6 mg/dL Total Bilirubin 0.3 0.2-1.0 mg/dL Aspartate Amino Transferase (AST) 25 13-40 U/L Alanine Aminotransferase (ALT) 28 7-40 U/L Alkaline Phosphatase 78 46-116 U/L B-Type Natriuretic Peptide 331.58 0-100 pg/mL Total Protein 8.5 H 5.7-8.2 g/dL Albumin 3.0 L 3.2-4.8 g/dL Lipase 28 12-53 U/L Microbiology Date/Time Source Procedure Growth Status 09/05/24 02:23 Nose MRSA Screen - Final Complete 09/04/24 22:40 Blood Blood Culture - Preliminary NO GROWTH AFTER 24 HOURS OF INCUBATION. Resulted Assessment Impression: Atrial fibrillation w/ RVR ST elevation myocardial infarction Nicotine dependence Pulmonary edema/interstitial lung opacities Leukocytosis Hyponatremia Elevated D-dimer Pneumonia, likely gram negative Obesity BMI 30 Plan: Supplemental oxygen 2 LPM NC Titrate to keep O2 sats above 92%. Taper O2 as tolerated. Continue antibiotics Diurese as tolerated - Lasix drip Monitor renal function. Monitor electrolytes. Supplement as necessary. Monitor ins and outs. Monitor WBC Smoking cessation discussed for greater than 10 minutes GI prophylaxis - Protonix BID DVT prophylaxis. Prognosis: Poor given patient's multiple co-morbidities. Condition: Critical Rest of plan per hospitalist and other consultants. Thank you, Dr. Green, for allowing me to participate in this patient's care. Further recommendations will depend on the patient's clinical course. Please do not hesitate to contact me if you have any questions or concerns. This medical document was created using an electronic medical record system with [employer] dictation system. Although these documentations are being carefully reviewed, there may still be some phonetic and typographical changes. The errors are purely typographical, due to imperfection on the software program, and do not reflect any compromise in the patient's medical care. Plan discussed with: Patient, Other (RGEINALD Rainey/MD Green) CHRIS LEE MD Sep 05, 2024 23:39
[2024-09-06] VITALS (94 sets, daily range): BP systolic 92–129; BP diastolic 50–77; PULSE 60–84; RESP 9–26; TEMP 97.8–98.3; O2SAT 81–100
--- NOTE | 2024-09-06 03:31 | DVHOP ---
DATE OF SURGERY: 09/04/2024 TECHNIQUE PERFORMED: * Emergency case. * Insertion of a 6-Lao arterial line in the right femoral artery. * Management of conscious sedation. * Left heart catheterization with left ventriculogram. * [place] selective left and right coronary artery angiography. * Right jugular angiography. COMPLICATIONS: None. AIR CONDITIONING COIL ASSEMBLER: Assisted by clinical laboratory scientist staff. INDICATIONS: As follows, the patient came in the Emergency Room chest pain, ST elevation noted diffusely. Several pause episodes for 3 seconds and more. The patient had been advised to go urgently to cardiac clinical laboratory scientist. DESCRIPTION OF PROCEDURE: The patient was given IV Angiomax and informed consent obtained, brought to clinical laboratory scientist urgently. Right groin shaved and was cleaned with soap and Betadine. IV Versed and fentanyl were given. Initially, we put JL4 catheter and left coronary angio done. With the help of guiding catheter and JR4, the right coronary angio done. With the help of pigtail catheter, complete left heart catheterization had been done. The left ventriculogram was done utilizing oblique view with total of 20 mL of dye. Post-LV gram, left ventriculography performed with the help of pull-through technique. Aortic pressure also was performed. J-wire was passed. Pigtail catheter also had been discontinued. Procedure completed. IMPRESSION: The left main has ostial narrowing, which is most likely the catheter-induced spasm long left main and also left anterior descending artery is large artery, normal. Circumflex and obtuse marginal normal. The right coronary artery is a nondominant artery, normal. The left ventricle is dilated, global hypokinesis, ejection fraction in the range of about 20% only. PLAN OF ACTION: As follows. At this time, we have no choice, but to put a temporary pacemaker wire because of several pause episodes over 3-4 seconds, profound bradycardia and we also need to do the intravascular ultrasound of the left main artery. Kellen Green MD MP/HEM/GILLES TID: [id number] RECEIPT: [id number] MTDMigel
--- NOTE | 2024-09-06 03:35 | DVHOP ---
DATE OF SURGERY: 09/04/2024 TECHNIQUE PERFORMED: * Intravascular ultrasound of left main. * Right femoral venous line placement. * Insertion of transvenous temporary pacemaker wire from right femoral vein and fluoroscopic guidance and supervision. ASSISTANTS: Assisted by our staff here, Arlen Snow Rani, Angela. COMPLICATIONS: None. INDICATIONS: The patient has several pause episodes for 5-7 second period, off and on. DESCRIPTION OF PROCEDURE: In a standard manner, the patient's right groin was shaved, cleaned with soap and Betadine and we also punctured right femoral venous line. Subsequently, the transvenous pacemaker was put in the right ventricle, sensing and capturing very well and the line has been sutured. Subsequently, we have now put a JL4 6-Faroese guiding catheter. A Runthrough wire was passed. We put an intravascular ultrasound of the left main was done because of underlying spasm at the ostium of the left main. The study completed. There were no complications. CONCLUSION: Successful intravascular ultrasound. The left main and ostium have a spasm. There is no stenosis. Kellen Green MD MP/VIJAY/GILLES TID: [id number] RECEIPT: [id number] MTDMigel
[2024-09-06 04:18] LABS: Alanine Aminotransferase 27 U/L (7-40); Alkaline Phosphatase 67 U/L (46-116); Anion Gap 5 (5-15); Aspartate Aminotransferase 20 U/L (13-40); BUN/Creatinine Ratio 15.7 (10.0-20.0); Blood Urea Nitrogen 13 mg/dL (9-23); Calcium 8.8 mg/dL (8.7-10.4); Carbon Dioxide 25 mmol/L (20-31); Chloride 103 mmol/L (98-107); Total Protein 7.9 g/dL (5.7-8.2)
[2024-09-06 04:23] LABS: Albumin 2.8 g/dL (3.2-4.8); Bilirubin, Total 0.2 mg/dL (0.2-1.0); Glucose 125 mg/dL (74-106); Sodium 133 mmol/L (136-145)
--- NOTE | 2024-09-06 05:44 | DVH ---
CHEST RADIOGRAPH Indication: pulmonary edema Technique: Single frontal view of the chest was obtained Comparison: XY CHEST PORTABLE on DOS: 09/04/24, XY CHEST PORTABLE on DOS: 09/04/24 FINDINGS: Lines and Tubes: None Lungs: Moderate interstitial pulmonary edema. Pleura: No effusion. No pneumothorax. Cardiomediastinal contours: Cardiomegaly Bones: Unremarkable IMPRESSION: 1. Moderate interstitial pulmonary edema in the setting of cardiomegaly.
[2024-09-06] MEDS: HYDROmorphone HCL 2 MG/ML VL/or syr ONE (05:54)
--- NOTE | 2024-09-06 06:10 | DVHPN2 ---
Progress Note - Dictate Date Seen: Sep 06, 2024 Medical Necessity Reason Pt with a Central, PICC or Fol: No Subjective Patient seen and examined at the bedside within the ICU. Chart reviewed vital signs Vital Sign Date Time Temp Pulse Resp B/P (MAP) Pulse Ox O2 Delivery O2 Flow Rate FiO2 09/06/24 06:00 60 09/06/24 06:00 19 99 Nasal Cannula* 2 28 09/06/24 05:54 108/54 09/06/24 00:00 97.8 97.8 Total Intake and Output 09/05/24 09/05/24 09/06/24 15:00 23:00 07:00 Intake Total 278.00 ml 707.6 ml 361.0 ml Output Total 800 ml 1500 ml Balance 278.00 ml -92.4 ml -1139.0 ml medications Current Medications Medications Dose Ordered Sig/Leelee Route Start Time Stop Time Status Last Admin Dose Admin Nitroglycerin 0.4 mg Q5MINP PRN SL 09/04/24 21:00 Morphine Sulfate 2 mg Q30M PRN IV 09/04/24 21:00 Furosemide 100 mg/ Sodium Chloride 110 ml @ 2.2 mls/hr Q24H IV 09/04/24 21:45 09/05/24 22:30 2.2 MLS/HR Hydromorphone HCl 0.5 mg Q3HPRN PRN IV 09/04/24 21:45 Acetaminophen/ Hydrocodone Bitart 1 tab Q4HPRN PRN PO 09/04/24 21:45 09/05/24 21:06 1 TAB Ceftriaxone Sodium 50 ml @ 100 mls/hr Q12HR IV 09/05/24 10:00 09/05/24 22:38 100 MLS/HR Pantoprazole Sodium 40 mg BID IV 09/05/24 10:00 09/05/24 22:37 40 MG Enoxaparin Sodium 100 mg Q12HR SC 09/05/24 22:00 09/05/24 22:38 100 MG Ondansetron HCl 4 mg Q4HPRN PRN IV 09/05/24 14:00 Dobutamine HCl/ Dextrose 250 ml @ 30 mls/hr Q8H20M IV 09/05/24 18:00 09/06/24 02:20 30 MLS/HR laboratory and microbiology Laboratory Tests 09/06/24 03:15 09/05/24 03:45 Test 09/06/24 03:15 Range/Units Serum Glucose 125 H 74-106 mg/dL Assessment/Plan ASSESSMENT: This is a 59-year old male who initially presented (09/04/2024) with diffuse chest pain with associated cough, abdominal pain and shortness of breath for approximately 3 days prior to arrival. Reports indicate the patient was discharged from [facility] the day prior to arrival at this facility. Due to the pains, patient underwent subsequent evaluation at urgent care and was advised to go to ED precipitating his arrival. 12-lead electrocardiogram en route revealed significant ST changes which patient was administered 325mg Aspirin prior to arrival. Upon ED arrival initial 12-lead electrocardiogram was found consistent with STEMI which patient underwent emergent cardiac catheterization (09/04/2024) revealing no warranted coronary revascularization however revealed presence of a severely reduced LV function of 20% by left ventriculogram. During the cardiac catheterization, it was reported the patient had experienced frequent pauses lasting up to 5-7 seconds requiring implantation of a temporary pacemaker which remains present at time of consultation (current configurations at time of consultation: rate: 60, mA: 6.0, sensitivity: 2.0 mV). At present time of consultation, telemetry reveals sinus rhythm with occasional ventricular pacing. As the patient underwent cardiac catheterization revealing no warranted coronary vascularization and subsequently found to have a severely reduced LV function by ventriculogram superimposed on pauses lasting up to 7 seconds requiring use of a temporary pacemaker, Electrophysiology services have now been involved by Interventional Cardiology request to evaluate the patient for potential AICD implantation. Echocardiogram: LV EJECTION FRACTION IS 60%, DYSKINESIS OF IVS, NORMAL VALVES, NO EFFUSION, MODERATELY DILATED RV AND RA, RVSP IS 41 MM OF HG AND IS ELEVATED, NORMAL RV FUNCTION, PACER IN RIGHT CARDIAC CHAMBERS STEMI Status post cardiac catheterization, no warranted revascularization Cardiac pauses up to 7 seconds, requiring implantation of temporary pacemaker Severely reduced LV function of 20% per ventriculogram (09/04/2024) Paroxysmal atrial fibrillation with RVR, currently sinus Pneumonia, community acquired QRS < 120ms ELECTROPHYSIOLOGY SUGGESTIONS FOR MANAGEMENT: As the patient underwent cardiac catheterization revealing no warranted coronary revascularization and subsequently found to have a severely reduced LV function by ventriculogram superimposed on pauses lasting up to 7 seconds requiring implantation of a temporary pacemaker, Electrophysiology services have now been involved by Interventional Cardiology request to evaluate the patient for potential AICD implantation. As LVEF is found preserved at 60% per Echocardiogram patient benefits from undergoing permanent pacemaker implantation secondary to the aforementioned pauses. As patient remains with leukocytosis with concern for further infection upon review of chest x-ray, we would recommend utilizing Micra for implantation to reduce the risk of post-operative infection. Benefits, risks, and alternatives were discussed at length with the patient which he is agreeable to the plan of care. Plan for PPM implantation utilizing Micra with Dr. Putnam this tomorrow Saturday (09/07/2024). Patient to be consented and NPO status at midnight (09/07/2024). Proceed with use of temporary pacemaker during the interim. Proceed with close rate and rhythm surveillance. To sustain potassium levels > 4.0 as well as magnesium levels > 2.0. Remainder of cardiac management as per Interventional Cardiology. Will proceed to follow from an EP perspective. Full AC for CVA prophylaxis is advised (on therapeutic Lovenox) Empiric antibiotic therapy in the setting of pneumonia Proceed with close rate and rhythm surveillance Proceed with close hemodynamic surveillance Proceed with optimized blood pressure control Transfuse to sustain HGB level above 7.0 Sustain Magnesium level greater than 2.0 Sustain Potassium level greater than 4.0 Follow up renal function and electrolytes Management in the ICU Follow up primary cardiology recommendations Will proceed to follow from a cardiac perspective Further recommendations per clinical progression All available diagnostic labs, EKG's, and images were personally reviewed Patient's status, findings, and plan of care was reviewed and discussed with supervising physician Dr. Putnam, who is in agreement with current plan of care. Plan of care discussed with and agreed upon by patient / primary RN Prognosis: Guarded Thank you for allowing me to participate in the care of this patient. Further recommendations based on patients clinical course and progression, primary attending, and other consultants. Will continue to follow with primary attending. If you have any questions or concerns, please do not hesitate to contact me. A total of 75 minutes was spent reviewing the patient record, examining the patient, making a diagnostic and therapeutic plan, discussing this plan with medical personnel, following up on diagnostic studies and following the patient for clinical stability excluding any and all procedures. At least 50% of this time was spent in direct, [id number] contact. Plan discussed with: Patient (Patient and Primary RN ) JOSH RYAN Sep 05, 2024 20:02 Plan discussed with: Patient (Patient and Primary RN ), Other (patient and primary RN ) JOSH RYAN Sep 06, 2024 06:10
[2024-09-06 06:56] LABS: Hematocrit 28.5 % (41.0-53.0); Hemoglobin 9.4 g/dL (13.5-17.5); Mean Corpuscular Hemoglobin 29.4 pg (28.0-32.0); Mean Corpuscular Hgb Conc. 33.1 g/dL (32.0-36.0); Platelet Count (auto) 298 10^3/uL (140-450); Red Cell Distribution Width 18.5 % (11.8-14.3); White Blood Cell 11.2 10^3/uL (4.4-10.8)
[2024-09-06 07:20] LABS: Basophils % (manual) 0 (0.0-2.0); Blast Cells 0; Eosinophils % (manual) 0 (0-7); Promyelocytes % 0; Reactive Lymphocytes 0
[2024-09-06] MEDS: HYDROmorphone HCL 2 MG/ML VL/or syr IV PRN ×2 (08:17→10:51)
[2024-09-06 08:23] LABS: Band Neutrophils % (manual) 5; Lymphocytes % (manual) 14 (10.0-50.0); Metamyelocytes % 2; Monocytes % (manual) 7 (0-12); Myelocytes % 2
[2024-09-06 08:24] LABS: Anisocytosis Slight; Platelet Estimate Adequate
--- NOTE | 2024-09-06 12:35 | MEDREC ---
[facility] Intervention Section I [facility] Intervention: Review courses of therapy (EMPIRIC TREATMENT FOR CAP CEFTRIAXONE 1 GR QD + DOXYCYCLINE 100 MG IV BID - PLEASE CONSIDER REVIEWING THE FREQUENCY OF ADMINISTRATION FOR CEFTRIAXONE AND ADDING DOXYCYCLINE TO COVER FOR POTENTIAL ATYPICAL MICROORGANISMS) BRIGIDO SCHAFER PHARMACIST Sep 06, 2024 12:35
[2024-09-06] MEDS: PIPERACILLIN-TAZOB 3.375GM 100 ML IV SCH (14:53)
[2024-09-06] MEDS: DOXYCYCLINE 100MG/100ML 100 ML IV SCH (15:36)
[2024-09-06 15:38] LABS: Urine Bacteria None Seen /hpf (None Seen)
[2024-09-06 16:24] LABS: Urine Blood Negative /uL (Negative); Urine Clarity Clear (Clear); Urine Color Light-Yellow (Yellow); Urine Protein, UAD Negative (Negative); Urine Specific Gravity 1.015 (1.001-1.035); Urine Squamous Epithelial Cell FEW /hpf (<5); Urine Urobilinogen Normal (Negative); Urine WBC 3 /hpf (0 - 3)
--- NOTE | 2024-09-06 18:23 | DVHPN2 ---
Progress Note - Dictate Date Seen: Sep 06, 2024 Medical Necessity Reason Pt with a Central, PICC or Fol: No Subjective Patient was seen and evaluated in follow up in the ICU. Patient remains on Dobutamine drip. WBC 11.2, HGB 9.4, HCT 28.5, NA 133. Chest x-ray shows moderate interstitial pulmonary edema in the setting of cardiomegaly. Patient is planned for PPM implantation utilizing Micra with Dr. Putnam this tomorrow Saturday (09/07/2024). vital signs Vital Sign Date Time Temp Pulse Resp B/P (MAP) Pulse Ox O2 Delivery O2 Flow Rate FiO2 09/06/24 16:00 18 100 Nasal Cannula* 2 28 09/06/24 15:15 60 105/62 (76) 09/06/24 08:00 98.3 98.3 Total Intake and Output 09/05/24 09/05/24 09/06/24 15:00 23:00 07:00 Intake Total 278.00 ml 707.6 ml 457.6 ml Output Total 800 ml 1500 ml Balance 278.00 ml -92.4 ml -1042.4 ml medications Current Medications Medications Dose Ordered Sig/Leelee Route Start Time Stop Time Status Last Admin Dose Admin Nitroglycerin 0.4 mg Q5MINP PRN SL 09/04/24 21:00 Morphine Sulfate 2 mg Q30M PRN IV 09/04/24 21:00 Furosemide 100 mg/ Sodium Chloride 110 ml @ 2.2 mls/hr Q24H IV 09/04/24 21:45 09/05/24 22:30 2.2 MLS/HR Acetaminophen/ Hydrocodone Bitart 1 tab Q4HPRN PRN PO 09/04/24 21:45 09/06/24 14:36 1 TAB Pantoprazole Sodium 40 mg BID IV 09/05/24 10:00 09/06/24 10:48 40 MG Ondansetron HCl 4 mg Q4HPRN PRN IV 09/05/24 14:00 Dobutamine HCl/ Dextrose 250 ml @ 30 mls/hr Q8H20M IV 09/05/24 18:00 09/06/24 10:48 30 MLS/HR Hydromorphone HCl 1 mg Q3HPRN PRN IV 09/06/24 09:30 09/06/24 10:51 1 MG Piperacillin Sod/ Tazobactam Sod 100 ml @ 25 mls/hr Q8HR IV 09/06/24 14:00 09/06/24 14:53 25 MLS/HR Doxycycline Hyclate 100 ml @ 50 mls/hr Q12H IV 09/06/24 15:00 09/06/24 15:36 50 MLS/HR objective GENERAL: Awake, alert, oriented. LUNGS: Clear. CARDIOVASCULAR: Heart sounds are good. ABDOMEN: Soft. laboratory and microbiology Laboratory Tests 09/06/24 06:13 09/06/24 03:15 Test 09/06/24 03:15 Range/Units Serum Glucose 125 H 74-106 mg/dL Problem List STEMI. Chest pain. Dilated cardiomyopathy. Status post cardiac catheterization, no warranted revascularization. Cardiac pauses up to 7 seconds, requiring implantation of temporary pacemaker. Severely reduced LV function of 20% per ventriculogram (09/04/2024). Paroxysmal atrial fibrillation with RVR, currently sinus. Pneumonia, community acquired. Assessment/Plan Continued all current supportive medical care. Morphine and [place] for pain management. IV antibiotics as ordered. DVT and GI prophylactics. Diuretics with Lasix. Dobutamine drip. Additional plan as per the hospital course. Critical care time of 45 minutes provided to include time spent evaluation of patient at bedside, when appropriate patient/family education for diagnosis, treatment plan, review of pertinent medical information and discussion of care with specialty providers and PCP. Plan discussed with: Patient JOSIE ROPER MD Sep 06, 2024 17:11
--- NOTE | 2024-09-06 22:02 | DVHPN2 ---
Progress Note - Dictate Date Seen: Sep 06, 2024 Medical Necessity Reason Pt with a Central, PICC or Fol: No Subjective Patient seen and examined at bedside. Remains on supplemental oxygen Overnight events reviewed. vital signs Vital Sign Date Time Temp Pulse Resp B/P (MAP) Pulse Ox O2 Delivery O2 Flow Rate FiO2 09/06/24 21:30 69 26 126/65 (85) 95 09/06/24 20:00 98.2 98.2 09/06/24 20:00 Nasal Cannula* 2 28 Total Intake and Output 09/05/24 09/05/24 09/06/24 15:00 23:00 07:00 Intake Total 278.00 ml 707.6 ml 457.6 ml Output Total 800 ml 1500 ml Balance 278.00 ml -92.4 ml -1042.4 ml medications Current Medications Medications Dose Ordered Sig/Leelee Route Start Time Stop Time Status Last Admin Dose Admin Nitroglycerin 0.4 mg Q5MINP PRN SL 09/04/24 21:00 Morphine Sulfate 2 mg Q30M PRN IV 09/04/24 21:00 Furosemide 100 mg/ Sodium Chloride 110 ml @ 2.2 mls/hr Q24H IV 09/04/24 21:45 09/05/24 22:30 2.2 MLS/HR Acetaminophen/ Hydrocodone Bitart 1 tab Q4HPRN PRN PO 09/04/24 21:45 09/06/24 19:47 1 TAB Pantoprazole Sodium 40 mg BID IV 09/05/24 10:00 09/06/24 10:48 40 MG Ondansetron HCl 4 mg Q4HPRN PRN IV 09/05/24 14:00 Dobutamine HCl/ Dextrose 250 ml @ 30 mls/hr Q8H20M IV 09/05/24 18:00 09/06/24 19:48 30 MLS/HR Hydromorphone HCl 1 mg Q3HPRN PRN IV 09/06/24 09:30 09/06/24 10:51 1 MG Piperacillin Sod/ Tazobactam Sod 100 ml @ 25 mls/hr Q8HR IV 09/06/24 14:00 09/06/24 14:53 25 MLS/HR Doxycycline Hyclate 100 ml @ 50 mls/hr Q12H IV 09/06/24 15:00 09/06/24 15:36 50 MLS/HR objective Gen.: Patient lying in bed in no apparent distress. On supplemental oxygen. Head: Normocephalic, atraumatic. Eyes: EOMI/PERRLA. Ears: Normal hearing. Normal anatomy. Neck/trachea: Trachea midline, supple. Nose: Normal external anatomy. Mouth: Moist mucous membranes. Chest: Decreased air entry bilaterally. No wheezing or rhonchi. Cardiovascular: Positive S1, positive S2. Regular rate and rhythm. Abdomen: Positive bowel sounds in all 4 quadrants. Soft, non-tender, non- distended. : Deferred. Rectal: Deferred. Skin: Warm, dry. Intact. Extremities: 2+ radial pulses bilaterally. No lower extremity edema. Neuro: Awake, alert, oriented x3. No gross motor or sensory deficits. Cranial nerves II through XII intact. Gait not assessed. laboratory and microbiology Laboratory Tests 09/06/24 06:13 09/06/24 03:15 Test 09/06/24 03:15 Range/Units Serum Glucose 125 H 74-106 mg/dL Assessment/Plan Impression: Atrial fibrillation w/ RVR ST elevation myocardial infarction Nicotine dependence Pulmonary edema/interstitial lung opacities Leukocytosis Hyponatremia Elevated D-dimer Pneumonia, likely gram negative Plan: Supplemental oxygen 2 LPM NC Titrate to keep O2 sats above 92%. Taper O2 as tolerated. Patient desaturates while sleeping. Plan for pacemaker implantation in AM. Continue antibiotics - Doxycycline Diurese as tolerated w/ Lasix 2 mg/hr Monitor renal function. Monitor electrolytes. Supplement as necessary. Monitor ins and outs. Dobutamine drip 5 mcg/min for inotropic support Monitor WBC GI prophylaxis - Protonix BID DVT prophylaxis. Prognosis: Poor given patient's multiple co-morbidities. Condition: Critical Rest of plan per hospitalist and other consultants. A total of 35 minutes of critical care time was spent reviewing the patient record, examining the patient, making a diagnostic and therapeutic plan, discussing this plan with the medical personnel, following up on diagnostic studies and following the patient for clinical stability excluding any and all procedures. At least 50% of this time was spent in direct, [id number] contact. Thank you, Dr. Green, for allowing me to participate in this patient's care. Further recommendations will depend on the patient's clinical course. Please do not hesitate to contact me if you have any questions or concerns. This medical document was created using an electronic medical record system with [employer] dictation system. Although these documentations are being carefully reviewed, there may still be some phonetic and typographical changes. The errors are purely typographical, due to imperfection on the software program, and do not reflect any compromise in the patient's medical care. Plan discussed with: Other (REGINALD Rainey) Critical Care Time(min): 35 CHRIS LEE MD Sep 06, 2024 22:02
[2024-09-07] VITALS (59 sets, daily range): BP systolic 93–126; BP diastolic 56–82; PULSE 55–66; RESP 10–28; TEMP 97.6–99.1; O2SAT 92–100
[2024-09-07 04:31] LABS: Hematocrit 28.9 % (41.0-53.0); Mean Corpuscular Hemoglobin 30.5 pg (28.0-32.0); Mean Corpuscular Hgb Conc. 34.6 g/dL (32.0-36.0); Mean Corpuscular Volume 88.1 fL (80.0-100.0); Platelet Count (auto) 302 10^3/uL (140-450); Red Blood Cells 3.28 10^6/uL (4.5-5.90); Red Cell Distribution Width 17.8 % (11.8-14.3); White Blood Cell 10.2 10^3/uL (4.4-10.8)
[2024-09-07 04:39] LABS: INR 1.11 (0.9-1.15); Partial Thromboplastin Time 25.8 SEC (24.5-34.5); Prothrombin Time 11.7 sec (9.3-11.8)
[2024-09-07 04:42] LABS: Alanine Aminotransferase 28 U/L (7-40); Alkaline Phosphatase 63 U/L (46-116); Anion Gap 4 (5-15); BUN/Creatinine Ratio 17.5 (10.0-20.0); Blood Urea Nitrogen 14 mg/dL (9-23); Carbon Dioxide 30 mmol/L (20-31); Chloride 101 mmol/L (98-107); Glucose 105 mg/dL (74-106); Potassium 3.9 mmol/L (3.5-5.1)
[2024-09-07 04:43] LABS: Aspartate Aminotransferase 17 U/L (13-40); Total Protein 7.8 g/dL (5.7-8.2)
[2024-09-07 04:46] LABS: Basophils % (manual) 0 (0.0-2.0); Blast Cells 0; Eosinophils % (manual) 0 (0-7); Promyelocytes % 0; Reactive Lymphocytes 0
[2024-09-07 04:54] LABS: Albumin 2.9 g/dL (3.2-4.8); Bilirubin, Total 0.2 mg/dL (0.2-1.0); Calcium 8.6 mg/dL (8.7-10.4); Magnesium 1.6 mg/dL (1.6-2.6); Sodium 135 mmol/L (136-145)
--- NOTE | 2024-09-07 05:35 | DVH ---
CHEST RADIOGRAPH Indication: pulmonary edema Technique: Single frontal view of the chest was obtained Comparison: XY CHEST PORTABLE on DOS: 09/06/24, XY CHEST PORTABLE on DOS: 09/04/24 FINDINGS: Lines and Tubes: None Lungs: Bilateral interstitial markings are similar to prior study. Pleura: No effusion. No pneumothorax. Cardiomediastinal contours: Stable. Bones: No acute osseous abnormality. IMPRESSION: 1. Stable interstitial pulmonary edema.
[2024-09-07 07:37] LABS: Band Neutrophils % (manual) 2; Lymphocytes % (manual) 19 (10.0-50.0); Metamyelocytes % 3; Monocytes % (manual) 7 (0-12); Myelocytes % 2
[2024-09-07 07:38] LABS: Platelet Estimate Adequate
[2024-09-07] MEDS: MAGNESIUM SULFATE 1GM/100ML 100 ML IV SCH (07:38)
[2024-09-07] MEDS: POTASSIUM CHL 20MEQ/100ML 100 ML IV ONE (07:38)
[2024-09-07] MEDS: fentaNYL CITRATE 100 MCG/2 ML VL ONE (08:04)
[2024-09-07] MEDS: HEPARIN SODIUM (PORCINE) 5000 UNITS/ML 1ML VIAL ONE (08:04)
[2024-09-07] MEDS: HEPARIN IN NS 1000Units/500mL 1,500 ML ONE (08:05)
[2024-09-07] MEDS: LIDOCAINE 2%HCL (LOCAL ANESTH.) INJ 20ML MDV ONE (08:05)
[2024-09-07] MEDS: MIDAZOLAM HCL 2MG/2ML 2ml VIAL (1mg/ml) ONE (08:05)
[2024-09-07] MEDS: VANCOMYCIN 1GM/250ML KIT 250 ML IV ONE (08:21)
--- NOTE | 2024-09-07 08:49 | DVHPN2 ---
Progress Note - Dictate Date Seen: Sep 07, 2024 Medical Necessity Reason Pt with a Central, PICC or Fol: No Subjective Patient seen and examined at the bedside within the ICU. Chart reviewed vital signs Vital Sign Date Time Temp Pulse Resp B/P (MAP) Pulse Ox O2 Delivery O2 Flow Rate FiO2 09/07/24 06:45 60 15 121/70 (87) 98 09/07/24 06:00 Nasal Cannula* 2 28 09/07/24 04:00 98.2 98.2 Total Intake and Output 09/06/24 09/06/24 09/07/24 15:00 23:00 07:00 Intake Total 557.6 ml 1082.6 ml 1375.4 ml Output Total 700 ml 2400 ml Balance 557.6 ml 382.6 ml -1024.6 ml medications Current Medications Medications Dose Ordered Sig/Leelee Route Start Time Stop Time Status Last Admin Dose Admin Nitroglycerin 0.4 mg Q5MINP PRN SL 09/04/24 21:00 Morphine Sulfate 2 mg Q30M PRN IV 09/04/24 21:00 Furosemide 100 mg/ Sodium Chloride 110 ml @ 2.2 mls/hr Q24H IV 09/04/24 21:45 09/06/24 21:45 2.2 MLS/HR Acetaminophen/ Hydrocodone Bitart 1 tab Q4HPRN PRN PO 09/04/24 21:45 09/07/24 01:25 1 TAB Pantoprazole Sodium 40 mg BID IV 09/05/24 10:00 09/06/24 22:28 40 MG Ondansetron HCl 4 mg Q4HPRN PRN IV 09/05/24 14:00 Dobutamine HCl/ Dextrose 250 ml @ 30 mls/hr Q8H20M IV 09/05/24 18:00 09/07/24 03:19 30 MLS/HR Hydromorphone HCl 1 mg Q3HPRN PRN IV 09/06/24 09:30 09/07/24 02:08 1 MG Piperacillin Sod/ Tazobactam Sod 100 ml @ 25 mls/hr Q8HR IV 09/06/24 14:00 09/07/24 05:46 25 MLS/HR Doxycycline Hyclate 100 ml @ 50 mls/hr Q12H IV 09/06/24 15:00 09/07/24 03:11 50 MLS/HR Magnesium Sulfate/ Dextrose 100 ml @ 100 mls/hr Q1HR IV 09/07/24 08:00 09/07/24 09:59 09/07/24 07:38 100 MLS/HR laboratory and microbiology Laboratory Tests 09/07/24 03:33 Test 09/07/24 03:33 Range/Units Serum Glucose 105 74-106 mg/dL Assessment/Plan ASSESSMENT: This is a 59-year old male who initially presented (09/04/2024) with diffuse chest pain with associated cough, abdominal pain and shortness of breath for approximately 3 days prior to arrival. Reports indicate the patient was discharged from [facility] the day prior to arrival at this facility. Due to the pains, patient underwent subsequent evaluation at urgent care and was advised to go to ED precipitating his arrival. 12-lead electrocardiogram en route revealed significant ST changes which patient was administered 325mg Aspirin prior to arrival. Upon ED arrival initial 12-lead electrocardiogram was found consistent with STEMI which patient underwent emergent cardiac catheterization (09/04/2024) revealing no warranted coronary revascularization however revealed presence of a severely reduced LV function of 20% by left ventriculogram. During the cardiac catheterization, it was reported the patient had experienced frequent pauses lasting up to 5-7 seconds requiring implantation of a temporary pacemaker which remains present at time of consultation (current configurations at time of consultation: rate: 60, mA: 6.0, sensitivity: 2.0 mV). At present time of consultation, telemetry reveals sinus rhythm with occasional ventricular pacing. As the patient underwent cardiac catheterization revealing no warranted coronary vascularization and subsequently found to have a severely reduced LV function by ventriculogram superimposed on pauses lasting up to 7 seconds requiring use of a temporary pacemaker, Electrophysiology services have now been involved by Interventional Cardiology request to evaluate the patient for potential AICD implantation. Echocardiogram: LV EJECTION FRACTION IS 60%, DYSKINESIS OF IVS, NORMAL VALVES, NO EFFUSION, MODERATELY DILATED RV AND RA, RVSP IS 41 MM OF HG AND IS ELEVATED, NORMAL RV FUNCTION, PACER IN RIGHT CARDIAC CHAMBERS STEMI Status post cardiac catheterization, no warranted revascularization Cardiac pauses up to 7 seconds, requiring implantation of temporary pacemaker Severely reduced LV function of 20% per ventriculogram (09/04/2024) Paroxysmal atrial fibrillation with RVR, currently sinus Pneumonia, community acquired QRS < 120ms ELECTROPHYSIOLOGY SUGGESTIONS FOR MANAGEMENT: As the patient underwent cardiac catheterization revealing no warranted coronary revascularization and subsequently found to have a severely reduced LV function by ventriculogram superimposed on pauses lasting up to 7 seconds requiring implantation of a temporary pacemaker, Electrophysiology services have now been involved by Interventional Cardiology request to evaluate the patient for potential AICD implantation. As LVEF is found preserved at 60% per Echocardiogram patient benefits from undergoing permanent pacemaker implantation secondary to the aforementioned pauses. As patient remains with leukocytosis with concern for further infection upon review of chest x-ray, we would recommend utilizing Micra for implantation to reduce the risk of post-operative infection. Benefits, risks, and alternatives were discussed at length with the patient which he is agreeable to the plan of care. Plan for PPM implantation utilizing Micra with Dr. Putnam today. Patient is consented and to remain NPO status. Proceed with use of temporary pacemaker during the interim. Proceed with close rate and rhythm surveillance. To sustain potassium levels > 4.0 as well as magnesium levels > 2.0. Remainder of cardiac management as per Interventional Cardiology. Will proceed to follow from an EP perspective. Full AC for CVA prophylaxis is advised (on therapeutic Lovenox) Empiric antibiotic therapy in the setting of pneumonia Proceed with close rate and rhythm surveillance Proceed with close hemodynamic surveillance Proceed with optimized blood pressure control Transfuse to sustain HGB level above 7.0 Sustain Magnesium level greater than 2.0 Sustain Potassium level greater than 4.0 Follow up renal function and electrolytes Management in the ICU Follow up primary cardiology recommendations Will proceed to follow from a cardiac perspective Further recommendations per clinical progression All available diagnostic labs, EKG's, and images were personally reviewed Patient's status, findings, and plan of care was reviewed and discussed with supervising physician Dr. Putnam, who is in agreement with current plan of care. Plan of care discussed with and agreed upon by patient / primary RN Prognosis: Guarded Thank you for allowing me to participate in the care of this patient. Further recommendations based on patients clinical course and progression, primary attending, and other consultants. Will continue to follow with primary attending. If you have any questions or concerns, please do not hesitate to contact me. A total of 75 minutes was spent reviewing the patient record, examining the patient, making a diagnostic and therapeutic plan, discussing this plan with medical personnel, following up on diagnostic studies and following the patient for clinical stability excluding any and all procedures. At least 50% of this time was spent in direct, [id number] contact. Plan discussed with: Patient (Patient and Primary RN ) JOSH RYAN Sep 05, 2024 20:02 Plan discussed with: Patient (Patient and Primary RN ) JOSH RYAN Sep 07, 2024 08:49
--- NOTE | 2024-09-07 11:05 | ECG ---
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
--- NOTE | 2024-09-07 12:42 | DVHINCON2 ---
Date of service: Sep 07, 2024 Reason for Consultation Post pacemaker medical management while in the hospital History of Present Illness 59-year-old male came to ER via EMS for chest pains. Aside from chronic back pains, patient denies any medical problems. Was just discharged yesterday from [facility] due to pneumonia. Patient went to urgent care earlier today due to chest pains. States he has been having diffuse chest pains, pressure, non radiating, worse when laying down, for the best 3 days associated with productive cough, abdominal pain and shortness of breath. Was advised by urgent Care the proceed to the nearest ER. EKG then took significant ST changes. Patient was given 324 aspirin while EN route to the emergency room. 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 Postop patient in the ICU and hospitalist consult is obtained given he belongs to [facility] for postop management and discharge planning. Currently he is stable denies any complaints of chest pain or shortness for breath. No headache dizziness. Other review of systems reviewed normal. Past Medical History Recent bronchitis/pneumonia Past Surgical History None noted Family History: Colon cancer G8 MOTHER Ischemic heart disease G8 FATHER Allergies: Coded Allergies: NO KNOWN ALLERGIES (Unverified , 09/04/24) Home Meds Active Scripts Doxycycline (Monohydrate) (Doxycycline) 100 Mg Cap, 100 MG PO BID, #10 CAP Prov:POOL DUDLEY MD 09/08/24 Aspirin (Aspir-Low) 81 Mg Tab, 81 MG PO DAILY, #30 TAB Prov:POOL DUDLEY MD 09/08/24 Current Medications Current Medications Medications (Trade) Dose Ordered Sig/Leelee Route PRN Reason Start Time Stop Time Status Last Admin Piperacillin Sod/ Tazobactam Sod 100 ml @ 25 mls/hr Q8HR IV 09/06/24 14:00 09/07/24 05:46 Doxycycline Hyclate 100 ml @ 50 mls/hr Q12H IV 09/06/24 15:00 09/07/24 03:11 Magnesium Sulfate/ Dextrose 100 ml @ 100 mls/hr Q1HR IV 09/07/24 08:00 09/07/24 09:59 DC 09/07/24 11:32 Review of Systems No fevers chills or sweats. No headache dizziness. No chest pain shortness for breath. Other review of systems reviewed normal. Vital Signs Vital Signs Date Time Temp Pulse Resp B/P (MAP) Pulse Ox O2 Delivery O2 Flow Rate FiO2 09/07/24 12:15 62 22 92 09/07/24 09:30 99.1 99.1 09/07/24 08:00 Nasal Cannula* 2 28 Physical Exam Comfortable in bed. Alert awake oriented x3. HEENT neck supple no elevated JVD. Pupils equal round react to light. Heart regular rate and rhythm S1 plus S2. No murmurs. Lungs fair air movement. No rales or wheezes. Abdomen soft. Nontender positive bowel sounds. Extremities no edema. Positive pulses. Labs/Diagnostic Data Labs Test 09/07/24 03:33 09/06/24 14:45 09/06/24 06:13 09/05/24 10:17 Range/Units White Blood Count 10.2 4.4-10.8 10^3/uL Red Blood Count 3.28 L 4.5-5.90 10^6/uL Hemoglobin 10.0 L 13.5-17.5 g/dL Hematocrit 28.9 L 41.0-53.0 % Mean Corpuscular Volume 88.1 80.0-100.0 fL Mean Corpuscular Hemoglobin 30.5 28.0-32.0 pg Mean Corpuscular Hemoglobin Concent 34.6 32.0-36.0 g/dL Red Cell Distribution Width 17.8 H 11.8-14.3 % Platelet Count 302 140-450 10^3/uL Mean Platelet Volume 6.4 L 6.9-10.8 fL Neutrophils (%) (Auto) 37.0-80.0 % Lymphocytes (%) (Auto) 10.0-50.0 % Monocytes (%) (Auto) 0.0-12.0 % Basophils (%) (Auto) 0.0-2.0 % Neutrophils # (Auto) 1.6-8.6 10 ^3/uL Lymphocytes # (Auto) 0.4-5.4 10 ^3/uL Monocytes # (Auto) 0-1.3 10 ^3/uL Differential Total Cells Counted 100.0 100 Neutrophils % (Manual) 67 37.0-80.0 Band Neutrophils % (Manual) 2 Lymphocytes % (Manual) 19 10.0-50.0 Monocytes % (Manual) 7 0-12 Eosinophils % (Manual) 0 0-7 Basophils % (Manual) 0 0.0-2.0 Metamyelocytes % (manual) 3 Myelocytes % (Manual) 2 Promyelocytes % (Manual) 0 Blast Cells % (Manual) 0 Reactive Lymphocytes 0 Platelet Estimate Adequate Prothrombin Time 11.7 9.3-11.8 sec Prothrombin Time INR 1.11 0.9-1.15 Activated Partial Thromboplast Time 25.8 24.5-34.5 SEC Sodium Level 135 L 136-145 mmol/L Potassium Level 3.9 3.5-5.1 mmol/L Chloride Level 101 98-107 mmol/L Carbon Dioxide Level 30 20-31 mmol/L Anion Gap 4 L 5-15 Blood Urea Nitrogen 14 9-23 mg/dL Creatinine 0.80 0.700-1.30 mg/dL Glomerular Filtration Rate Calc 103 >90 mL/min BUN/Creatinine Ratio 17.5 10.0-20.0 Serum Glucose 105 74-106 mg/dL Calcium Level 8.6 L 8.7-10.4 mg/dL Magnesium Level 1.6 1.6-2.6 mg/dL Total Bilirubin 0.2 0.2-1.0 mg/dL Aspartate Amino Transferase (AST) 17 13-40 U/L Alanine Aminotransferase (ALT) 28 7-40 U/L Alkaline Phosphatase 63 46-116 U/L Total Protein 7.8 5.7-8.2 g/dL Albumin 2.9 L 3.2-4.8 g/dL Urine Color Light-yellow Yellow Urine Clarity Clear Clear Urine pH 5.0 5.0-9.0 Urine Specific [place] 1.015 1.001-1.035 Urine Protein Negative Negative Urine Ketones Negative Negative Urine Blood Negative Negative /uL Urine Nitrite Negative Negative Urine Bilirubin Negative Negative Urine Urobilinogen Normal Negative mg/dL Urine Leukocyte Esterase Negative Negative /uL Urine RBC 1 0 - 3 /hpf Urine WBC 3 0 - 3 /hpf Urine Squamous Epithelial Cells Few <5 /hpf Urine Bacteria None seen None Seen /hpf Urine Glucose Normal Normal mg/dL Anisocytosis (manual) Slight Microcytosis Slight Free Thyroxine (T4) Calculated 0.91 0.89-1.76 ng/dL Test 09/05/24 06:48 09/05/24 03:45 09/04/24 22:09/04/24 19:29 Range/Units Urine Opiates Screen Neg NEGATIVE Urine Fentanyl Screen Pos NEGATIVE Urine Barbiturates Screen Neg NEGATIVE Urine Phencyclidine Screen Neg NEGATIVE Urine Amphetamines Screen Neg NEGATIVE Urine Benzodiazepines Screen Neg NEGATIVE Urine Cocaine Screen Neg NEGATIVE Urine Cannabinoids Screen Neg NEGATIVE Eosinophils (%) (Auto) 0.0 0.0-7.0 % Eosinophils # (Auto) 0 0-0.8 10 ^3/uL Basophils # (Auto) 0 0-0.2 10 ^3/uL Nucleated Red Blood Cells 0.0 % Lactic Acid Level 0.7 0.4-2.0 mmol/L Thyroid Stimulating Hormone (TSH) 0.71 0.55-4.78 uIU/mL Troponin I High Sensitivity 176 *H </=54 ng/L D-Dimer, Quantitative 1.26 H 0.0-0.49 mg/L FEU B-Type Natriuretic Peptide 331.58 0-100 pg/mL Lipase 28 12-53 U/L Microbiology Date/Time Source Procedure Growth Status 09/06/24 14:45 Voided Urine Urine Culture - Preliminary Resulted 09/05/24 02:23 Nose MRSA Screen - Final Complete 09/05/24 00:50 Sputum Gram Stain - Final Resulted 09/05/24 00:50 Sputum Respiratory Culture - Preliminary Resulted 09/04/24 22:40 Blood Blood Culture - Preliminary NO GROWTH AFTER 48 HOURS OF INCUBATION. Resulted Assessment He is comfortable post pacemaker placement in the ICU. He is off of all IV drips. Therefore we will downgrade and transferred him to telemetry floor and monitor him overnight. Otherwise continue empiric antibiotic for recent p neumonia. Encouraged activity/ambulation. Otherwise further clinical management per clinical course and recommendations from the consultants. Discussed with the patient and nurse regarding care plan in the ICU. Problems(with codes): (1) Status post placement of cardiac pacemaker (2) Chest pain (3) Sick sinus syndrome Plan discussed with: Patient, Other POOL DUDLEY MD Sep 07, 2024 12:42
[2024-09-07] MEDS: HYDROmorphone HCL 2 MG/ML VL/or syr IV PRN (17:51)
--- NOTE | 2024-09-07 21:37 | DVHOP2 ---
Operative Report Date of service : 09/07/24 Procedure : Implantation of Lead less dual pacemaker, MICRA, VINCENZO Indication : 1. Paroxysmal Afib with bradycardia, HR 30-40 bpm, Pauses up to 7 seconds, tachy/beata syndrome, patient should be on blood thinner 2. Symptomatic bradycardia, on dobutamine drip and temporary trans venous pacemaker, 3. Normal EF, patient has risk of infection, pneumonia on antibiotic therapy 4. Patient is requiring blood thinner. Also has a risk of infection. Implanting micra has definite less chance of complication compared to trans venous pacemaker PROCEDURE IN DETAIL: After obtaining informed consent with explanation of risk, benefits, and alternatives, the patient agreed upon the planned procedure, implantation of lead less dual pacemaker, MICRA. Under standard fashion, local and systemic anesthetic, right groin area was prepped and draped. Right femoral vein was accessed x one, by using multiple dilators the area was upgraded to advance the MICRA delivery system which was 23. After the hemodynamics stabilize, Micra lead sprinkler was advanced over the sheet into right heart. Device was delivered into mid septum with excellent sensing and pacing parameters. Impedance 1105 ohms, sensing 8 mv, pacing threshold 0.35 V at 0.25 ms. The trial to assess the stability was in favor of at least three prones attached into myocardium. The system was removed and groin was secured by figure of eight. Conclusion : S/P successful implantation of lead less dual pacemaker, MICRA with lower rate 60 bpm TRAVIS TORRES MD Sep 07, 2024 21:37
--- NOTE | 2024-09-07 22:58 | DVHPN2 ---
Progress Note - Dictate Date Seen: Sep 07, 2024 Medical Necessity Reason Pt with a Central, PICC or Fol: No Subjective Patient was seen and evaluated in follow up. The patient has been downgraded. Patient underwent implantation of Lead less dual pacemaker, CHANDRIKA, T and tolerated procedure well. Prelim urine culture shows no growth. Telemetry reviewed. vital signs Vital Sign Date Time Temp Pulse Resp B/P (MAP) Pulse Ox O2 Delivery O2 Flow Rate FiO2 09/07/24 18:43 82 18 120/80 09/07/24 16:38 98.1 95 98.1 09/07/24 16:36 Nasal Cannula* 2 28 Total Intake and Output 09/06/24 09/06/24 09/07/24 15:00 23:00 07:00 Intake Total 557.6 ml 1082.6 ml 1432.6 ml Output Total 700 ml 2400 ml Balance 557.6 ml 382.6 ml -967.4 ml medications Current Medications Medications Dose Ordered Sig/Leelee Route Start Time Stop Time Status Last Admin Dose Admin Nitroglycerin 0.4 mg Q5MINP PRN SL 09/04/24 21:00 Morphine Sulfate 2 mg Q30M PRN IV 09/04/24 21:00 Acetaminophen/ Hydrocodone Bitart 1 tab Q4HPRN PRN PO 09/04/24 21:45 09/07/24 22:08 1 TAB Ondansetron HCl 4 mg Q4HPRN PRN IV 09/05/24 14:00 Piperacillin Sod/ Tazobactam Sod 100 ml @ 25 mls/hr Q8HR IV 09/06/24 14:00 09/07/24 22:07 25 MLS/HR Doxycycline Hyclate 100 ml @ 50 mls/hr Q12H IV 09/06/24 15:00 09/07/24 14:55 50 MLS/HR Hydromorphone HCl 0.5 mg Q6HPRN PRN IV 09/07/24 12:45 09/07/24 17:51 0.5 MG objective GENERAL: Awake, alert, oriented. LUNGS: Clear. CARDIOVASCULAR: Heart sounds are good. ABDOMEN: Soft. laboratory and microbiology Laboratory Tests 09/07/24 03:33 Test 09/07/24 03:33 Range/Units Serum Glucose 105 74-106 mg/dL Problem List STEMI. Chest pain. Dilated cardiomyopathy. Status post cardiac catheterization, no warranted revascularization. Cardiac pauses up to 7 seconds, requiring implantation of temporary pacemaker. Severely reduced LV function of 20% per ventriculogram (09/04/2024). Paroxysmal atrial fibrillation with RVR, currently sinus. Pneumonia, community acquired. Assessment/Plan Continued all current supportive medical care. Morphine and [place] for pain management. IV antibiotics as ordered. DVT and GI prophylactics. Diuretics with Lasix. Additional plan as per the hospital course. Dietary Evaluation Review Comments: 1) [facility] Expected Outcomes/Goals: F/U in 3-5 days Plan discussed with: Patient JOSIE ROPER MD Sep 07, 2024 22:58
--- NOTE | 2024-09-07 23:50 | DVHPN2 ---
Progress Note - Dictate Date Seen: Sep 07, 2024 Medical Necessity Reason Pt with a Central, PICC or Fol: No Subjective Patient seen and examined at bedside. Remains on supplemental oxygen Overnight events reviewed. vital signs Vital Sign Date Time Temp Pulse Resp B/P (MAP) Pulse Ox O2 Delivery O2 Flow Rate FiO2 09/07/24 18:43 82 18 120/80 09/07/24 16:38 98.1 95 98.1 09/07/24 16:36 Nasal Cannula* 2 28 Total Intake and Output 09/06/24 09/06/24 09/07/24 15:00 23:00 07:00 Intake Total 557.6 ml 1082.6 ml 1432.6 ml Output Total 700 ml 2400 ml Balance 557.6 ml 382.6 ml -967.4 ml medications Current Medications Medications Dose Ordered Sig/Leelee Route Start Time Stop Time Status Last Admin Dose Admin Nitroglycerin 0.4 mg Q5MINP PRN SL 09/04/24 21:00 Morphine Sulfate 2 mg Q30M PRN IV 09/04/24 21:00 Acetaminophen/ Hydrocodone Bitart 1 tab Q4HPRN PRN PO 09/04/24 21:45 09/07/24 22:08 1 TAB Ondansetron HCl 4 mg Q4HPRN PRN IV 09/05/24 14:00 Piperacillin Sod/ Tazobactam Sod 100 ml @ 25 mls/hr Q8HR IV 09/06/24 14:00 09/07/24 22:07 25 MLS/HR Doxycycline Hyclate 100 ml @ 50 mls/hr Q12H IV 09/06/24 15:00 09/07/24 14:55 50 MLS/HR Hydromorphone HCl 0.5 mg Q6HPRN PRN IV 09/07/24 12:45 09/07/24 17:51 0.5 MG objective Gen.: Patient lying in bed in no apparent distress. On supplemental oxygen. Head: Normocephalic, atraumatic. Eyes: EOMI/PERRLA. Ears: Normal hearing. Normal anatomy. Neck/trachea: Trachea midline, supple. Nose: Normal external anatomy. Mouth: Moist mucous membranes. Chest: Decreased air entry bilaterally. No wheezing or rhonchi. Cardiovascular: Positive S1, positive S2. Regular rate and rhythm. Abdomen: Positive bowel sounds in all 4 quadrants. Soft, non-tender, non- distended. : Deferred. Rectal: Deferred. Skin: Warm, dry. Intact. Extremities: 2+ radial pulses bilaterally. No lower extremity edema. Neuro: Awake, alert, oriented x3. No gross motor or sensory deficits. Cranial nerves II through XII intact. Gait not assessed. laboratory and microbiology Laboratory Tests 09/07/24 03:33 Test 09/07/24 03:33 Range/Units Serum Glucose 105 74-106 mg/dL Assessment/Plan Impression: Atrial fibrillation w/ RVR ST elevation myocardial infarction Nicotine dependence Pulmonary edema/interstitial lung opacities Leukocytosis Hyponatremia Elevated D-dimer Pneumonia, likely gram negative Obesity BMI 30 Events: Remains on supplemental oxygen, 2 LPM NC Taper O2 as tolerated Pt desaturates while sleeping. Recommend outpatient sleep study Dobutamine drip for inotropic support Continue abx - Zosyn and doxycycline. K, mag supplementation Monitor renal function. Monitor electrolytes. Supplement as necessary. Patient is stable for discharge from the pulmonary standpoint. Labs and imaging reviewed. Rest of plan as noted below. Plan: Supplemental oxygen Titrate to keep O2 sats above 92%. Continue antibiotics Monitor renal function. Monitor electrolytes. Supplement as necessary. Monitor ins and outs. Monitor WBC GI prophylaxis - Protonix BID DVT prophylaxis. Prognosis: Poor given patient's multiple co-morbidities. Rest of plan per hospitalist and other consultants. A total of 51 minutes of clinical care time was spent reviewing the patient record, examining the patient, making a diagnostic and therapeutic plan, discussing this plan with the medical personnel, following up on diagnostic studies and following the patient for clinical stability excluding any and all procedures. At least 50% of this time was spent in direct, [id number] contact. Thank you, Dr. Green, for allowing me to participate in this patient's care. Further recommendations will depend on the patient's clinical course. Please do not hesitate to contact me if you have any questions or concerns. This medical document was created using an electronic medical record system with [employer] system. Although these documentations are being carefully reviewed, there may still be some phonetic and typographical changes. The errors are purely typographical, due to imperfection on the software program, and do not reflect any compromise in the patient's medical care. Dietary Evaluation Review Comments: 1) Continue curren tplan of care Expected Outcomes/Goals: F/U in 3-5 days Plan discussed with: Patient, Other (REGINALD Rainey) CHRIS LEE MD Sep 07, 2024 23:50
[2024-09-08] VITALS (7 sets, daily range): BP systolic 99–115; BP diastolic 57–72; PULSE 61–68; RESP 16–19; TEMP 97.5–98.7; O2SAT 91–100
--- NOTE | 2024-09-08 16:57 | DVHPN2 ---
Progress Note - Dictate Date Seen: Sep 08, 2024 Medical Necessity Reason Pt with a Central, PICC or Fol: No Subjective Patient seen and examined at the bedside within telemetry. Chart reviewed vital signs Vital Sign Date Time Temp Pulse Resp B/P (MAP) Pulse Ox O2 Delivery O2 Flow Rate FiO2 09/08/24 13:30 98.7 62 16 105/60 (75) 95 98.7 09/08/24 08:00 Room Air* 0 21 Total Intake and Output 09/07/24 09/07/24 09/08/24 15:00 23:00 07:00 Intake Total 323.8 ml 0 ml 1400 ml Output Total 1950 ml Balance 323.8 ml 0 ml -550 ml medications Current Medications Medications Dose Ordered Sig/Leelee Route Start Time Stop Time Status Last Admin Dose Admin Nitroglycerin 0.4 mg Q5MINP PRN SL 09/04/24 21:00 Morphine Sulfate 2 mg Q30M PRN IV 09/04/24 21:00 Acetaminophen/ Hydrocodone Bitart 1 tab Q4HPRN PRN PO 09/04/24 21:45 09/08/24 14:06 1 TAB Ondansetron HCl 4 mg Q4HPRN PRN IV 09/05/24 14:00 Piperacillin Sod/ Tazobactam Sod 100 ml @ 25 mls/hr Q8HR IV 09/06/24 14:00 09/08/24 14:01 25 MLS/HR Doxycycline Hyclate 100 ml @ 50 mls/hr Q12H IV 09/06/24 15:00 09/08/24 14:00 50 MLS/HR Hydromorphone HCl 0.5 mg Q6HPRN PRN IV 09/07/24 12:45 09/08/24 04:38 0.5 MG laboratory and microbiology Laboratory Tests 09/07/24 03:33 Test 09/07/24 03:33 Range/Units Serum Glucose 105 74-106 mg/dL Assessment/Plan ASSESSMENT: This is a 59-year old male who initially presented (09/04/2024) with diffuse chest pain with associated cough, abdominal pain and shortness of breath for approximately 3 days prior to arrival. Reports indicate the patient was discharged from [facility] the day prior to arrival at this facility. Due to the pains, patient underwent subsequent evaluation at urgent care and was advised to go to ED precipitating his arrival. 12-lead electrocardiogram en route revealed significant ST changes which patient was administered 325mg Aspirin prior to arrival. Upon ED arrival initial 12-lead electrocardiogram was found consistent with STEMI which patient underwent emergent cardiac catheterization (09/04/2024) revealing no warranted coronary revascularization however revealed presence of a severely reduced LV function of 20% by left ventriculogram. During the cardiac catheterization, it was reported the patient had experienced frequent pauses lasting up to 5-7 seconds requiring implantation of a temporary pacemaker which remains present at time of consultation (current configurations at time of consultation: rate: 60, mA: 6.0, sensitivity: 2.0 mV). At present time of consultation, telemetry reveals sinus rhythm with occasional ventricular pacing. As the patient underwent cardiac catheterization revealing no warranted coronary vascularization and subsequently found to have a severely reduced LV function by ventriculogram superimposed on pauses lasting up to 7 seconds requiring use of a temporary pacemaker, Electrophysiology services have now been involved by Interventional Cardiology request to evaluate the patient for potential AICD implantation. Echocardiogram: LV EJECTION FRACTION IS 60%, DYSKINESIS OF IVS, NORMAL VALVES, NO EFFUSION, MODERATELY DILATED RV AND RA, RVSP IS 41 MM OF HG AND IS ELEVATED, NORMAL RV FUNCTION, PACER IN RIGHT CARDIAC CHAMBERS STEMI Status post cardiac catheterization, no warranted revascularization Cardiac pauses up to 7 seconds, requiring implantation of temporary pacemaker Severely reduced LV function of 20% per ventriculogram (09/04/2024) Preserved LVEF of 60% as per Echocardiogram Paroxysmal atrial fibrillation with RVR, currently sinus Pneumonia, community acquired QRS < 120ms Status post lead-less PPM (Micra) 09/07/2024 ELECTROPHYSIOLOGY SUGGESTIONS FOR MANAGEMENT: As the patient underwent cardiac catheterization revealing no warranted coronary revascularization and subsequently found to have a severely reduced LV function by ventriculogram superimposed on pauses lasting up to 7 seconds requiring implantation of a temporary pacemaker, Electrophysiology services have now been involved by Interventional Cardiology request to evaluate the patient for potential AICD implantation. As LVEF is found preserved at 60% per Echocardiogram patient benefitted from undergoing permanent pacemaker implantation secondary to the aforementioned pauses. Patient is now status post PPM implantation with Micra (09/07/2024). Pacemaker Interrogation (09/08/2024) reveals adequate sensing and pacing parameters, overall normal functioning device. Suture to left groin at site of cannulation now removed and site has been redressed in a sterile fashion. Resume full AC in the setting of paroxysmal atrial fibrillation. Proceed with close rate and rhythm surveillance. To sustain potassium levels > 4.0 as well as magnesium levels > 2.0. Remainder of cardiac management as per Interventional Cardiology. Remains stable from an EP perspective. Full AC for CVA prophylaxis is advised (on therapeutic Lovenox) Empiric antibiotic therapy in the setting of pneumonia Proceed with close rate and rhythm surveillance Proceed with close hemodynamic surveillance Proceed with optimized blood pressure control Transfuse to sustain HGB level above 7.0 Sustain Magnesium level greater than 2.0 Sustain Potassium level greater than 4.0 Follow up renal function and electrolytes Management in the ICU Follow up primary cardiology recommendations Will proceed to follow from a cardiac perspective Further recommendations per clinical progression All available diagnostic labs, EKG's, and images were personally reviewed Patient's status, findings, and plan of care was reviewed and discussed with supervising physician Dr. Putnam, who is in agreement with current plan of care. Plan of care discussed with and agreed upon by patient / primary RN Prognosis: Guarded Thank you for allowing me to participate in the care of this patient. Further recommendations based on patients clinical course and progression, primary attending, and other consultants. Will continue to follow with primary attending. If you have any questions or concerns, please do not hesitate to contact me. A total of 75 minutes was spent reviewing the patient record, examining the patient, making a diagnostic and therapeutic plan, discussing this plan with medical personnel, following up on diagnostic studies and following the patient for clinical stability excluding any and all procedures. At least 50% of this time was spent in direct, [id number] contact. Plan discussed with: Patient (Patient and Primary RN ) JOSH RYAN Sep 05, 2024 20:02 Dietary Evaluation Review Comments: 1) Continue curren tplan of care Expected Outcomes/Goals: F/U in 3-5 days Plan discussed with: Patient (Patient and Primary RN ) JOSH RYAN Sep 08, 2024 16:57
[2024-09-08] MEDS ORDERED: ASPI-543 PO (17:39)
[2024-09-08] MEDS ORDERED: DOXY100C79 PO (17:39)
--- NOTE | 2024-09-08 17:44 | DVHDS2 ---
Discharge Summary Date of Admission Sep 04, 2024 at 20:54 Date of Discharge: Sep 08, 2024 Labs/Diagnostic Data: Laboratory Results Test 09/07/24 03:33 09/06/24 14:45 09/06/24 06:13 09/05/24 10:17 White Blood Count 10.2 10^3/uL (4.4-10.8) Red Blood Count 3.28 10^6/uL (4.5-5.90) Hemoglobin 10.0 g/dL (13.5-17.5) Hematocrit 28.9 % (41.0-53.0) Mean Corpuscular Volume 88.1 fL (80.0-100.0) Mean Corpuscular Hemoglobin 30.5 pg (28.0-32.0) Mean Corpuscular Hemoglobin Concent 34.6 g/dL (32.0-36.0) Red Cell Distribution Width 17.8 % (11.8-14.3) Platelet Count 302 10^3/uL (140-450) Mean Platelet Volume 6.4 fL (6.9-10.8) Neutrophils (%) (Auto) % (37.0-80.0) Lymphocytes (%) (Auto) % (10.0-50.0) Monocytes (%) (Auto) % (0.0-12.0) Basophils (%) (Auto) % (0.0-2.0) Neutrophils # (Auto) 10 ^3/uL (1.6-8.6) Lymphocytes # (Auto) 10 ^3/uL (0.4-5.4) Monocytes # (Auto) 10 ^3/uL (0-1.3) Differential Total Cells Counted 100.0 (100) Neutrophils % (Manual) 67 (37.0-80.0) Band Neutrophils % (Manual) 2 Lymphocytes % (Manual) 19 (10.0-50.0) Monocytes % (Manual) 7 (0-12) Eosinophils % (Manual) 0 (0-7) Basophils % (Manual) 0 (0.0-2.0) Metamyelocytes % (manual) 3 Myelocytes % (Manual) 2 Promyelocytes % (Manual) 0 Blast Cells % (Manual) 0 Reactive Lymphocytes 0 Platelet Estimate Adequate Prothrombin Time 11.7 sec (9.3-11.8) Prothrombin Time INR 1.11 (0.9-1.15) Activated Partial Thromboplast Time 25.8 SEC (24.5-34.5) Sodium Level 135 mmol/L (136-145) Potassium Level 3.9 mmol/L (3.5-5.1) Chloride Level 101 mmol/L (98-107) Carbon Dioxide Level 30 mmol/L (20-31) Anion Gap 4 (5-15) Blood Urea Nitrogen 14 mg/dL (9-23) Creatinine 0.80 mg/dL (0.700-1.30) Glomerular Filtration Rate Calc 103 mL/min (>90) BUN/Creatinine Ratio 17.5 (10.0-20.0) Serum Glucose 105 mg/dL (74-106) Calcium Level 8.6 mg/dL (8.7-10.4) Magnesium Level 1.6 mg/dL (1.6-2.6) Total Bilirubin 0.2 mg/dL (0.2-1.0) Aspartate Amino Transferase (AST) 17 U/L (13-40) Alanine Aminotransferase (ALT) 28 U/L (7-40) Alkaline Phosphatase 63 U/L (46-116) Total Protein 7.8 g/dL (5.7-8.2) Albumin 2.9 g/dL (3.2-4.8) Urine Color Light-yellow (Yellow) Urine Clarity Clear (Clear) Urine pH 5.0 (5.0-9.0) Urine Specific [place] 1.015 (1.001-1.035) Urine Protein Negative (Negative) Urine Ketones Negative (Negative) Urine Blood Negative /uL (Negative) Urine Nitrite Negative (Negative) Urine Bilirubin Negative (Negative) Urine Urobilinogen Normal mg/dL (Negative) Urine Leukocyte Esterase Negative /uL (Negative) Urine RBC 1 /hpf (0 - 3) Urine WBC 3 /hpf (0 - 3) Urine Squamous Epithelial Cells Few /hpf (<5) Urine Bacteria None seen /hpf (None Seen) Urine Glucose Normal mg/dL (Normal) Anisocytosis (manual) Slight Microcytosis Slight Free Thyroxine (T4) Calculated 0.91 ng/dL (0.89-1.76) Test 09/05/24 06:48 09/05/24 03:45 09/04/24 22:25 09/04/24 19:29 Urine Opiates Screen Neg (NEGATIVE) Urine Fentanyl Screen Pos (NEGATIVE) Urine Barbiturates Screen Neg (NEGATIVE) Urine Phencyclidine Screen Neg (NEGATIVE) Urine Amphetamines Screen Neg (NEGATIVE) Urine Benzodiazepines Screen Neg (NEGATIVE) Urine Cocaine Screen Neg (NEGATIVE) Urine Cannabinoids Screen Neg (NEGATIVE) Eosinophils (%) (Auto) 0.0 % (0.0-7.0) Eosinophils # (Auto) 0 10 ^3/uL (0-0.8) Basophils # (Auto) 0 10 ^3/uL (0-0.2) Nucleated Red Blood Cells 0.0 % Lactic Acid Level 0.7 mmol/L (0.4-2.0) Thyroid Stimulating Hormone (TSH) 0.71 uIU/mL (0.55-4.78) Troponin I High Sensitivity 176 ng/L (</=54) D-Dimer, Quantitative 1.26 mg/L FEU (0.0-0.49) B-Type Natriuretic Peptide 331.58 pg/mL (0-100) Lipase 28 U/L (12-53) Other Laboratory Tests 09/07/24 03:33 Final Diagnosis/Problems List Status post lead-less PPM (Micra) 09/07/2024 Discharge Disposition: Home Discharge Instruct/Medications Diet: Consistent carbohydrate, Cardiac 2g Na,low cholest Activity: No Restrictions, As Tolerated Follow Up/Referral: Dr. Green or [facility] after two weeks follow up pacemaker placement Medications: As prescribed and Home medications if you were taking any Discharge Statement: "Patient was advised to return to the ER or call 911 if any headaches, dizziness, shortness of breath, chest pain, abdominal pain, bleeding, fevers, or worsening of medical condition. Patient was counseled about treatment plan, medications, possible side effects, patientverbalized understanding. All questions were answered to the best of my ability. This discharge took greater then 30 minutes in planning, reviewing documentation, counseling the patient, and discussing with other team members." ASSESSMENT ASSESSMENT Assessment Status post lead-less PPM (Micra) 09/07/2024 POOL DUDLEY MD Sep 08, 2024 17:44
[2024-09-08] MEDS ORDERED: ENOXAPARIN SOD 120 MG/0.8 ML SYRINGE SC SCH (22:00)
--- NOTE | 2024-09-08 22:02 | DVHPN2 ---
Progress Note - Dictate Date Seen: Sep 08, 2024 Medical Necessity Reason Pt with a Central, PICC or Fol: No Subjective Patient was seen and evaluated in follow up. Patient has no new complaints at this time. Patient denies any cardiac symptoms. Patient is cardiac stable for discharge. Telemetry reviewed. vital signs Vital Sign Date Time Temp Pulse Resp B/P (MAP) Pulse Ox O2 Delivery O2 Flow Rate FiO2 09/08/24 17:30 98.7 68 18 108/72 (84) 100 98.7 09/08/24 08:00 Room Air* 0 21 Total Intake and Output 09/07/24 09/07/24 09/08/24 15:00 23:00 07:00 Intake Total 323.8 ml 0 ml 1400 ml Output Total 1950 ml Balance 323.8 ml 0 ml -550 ml objective GENERAL: Awake, alert, oriented. LUNGS: Clear. CARDIOVASCULAR: Heart sounds are good. ABDOMEN: Soft. laboratory and microbiology Laboratory Tests 09/07/24 03:33 Test 09/07/24 03:33 Range/Units Serum Glucose 105 74-106 mg/dL Problem List STEMI. Chest pain. Dilated cardiomyopathy. Status post cardiac catheterization, no warranted revascularization. Cardiac pauses up to 7 seconds, requiring implantation of temporary pacemaker. Severely reduced LV function of 20% per ventriculogram (09/04/2024). Paroxysmal atrial fibrillation with RVR, currently sinus. Pneumonia, community acquired. Assessment/Plan Continued all current supportive medical care. Morphine and [place] for pain management. IV antibiotics as ordered. DVT and GI prophylactics. Diuretics with Lasix. Additional plan as per the hospital course. Dietary Evaluation Review Comments: 1) [facility] Expected Outcomes/Goals: F/U in 3-5 days Plan discussed with: Patient JOSIE ROPER MD Sep 08, 2024 22:02
--- NOTE | 2024-09-08 22:10 | DVHPN2 ---
Progress Note - Dictate Date Seen: Sep 08, 2024 Medical Necessity Reason Pt with a Central, PICC or Fol: No Subjective Patient seen and examined at bedside. Breathing on room air. Overnight events reviewed. vital signs Vital Sign Date Time Temp Pulse Resp B/P (MAP) Pulse Ox O2 Delivery O2 Flow Rate FiO2 09/08/24 17:30 98.7 68 18 108/72 (84) 100 98.7 09/08/24 08:00 Room Air* 0 21 Total Intake and Output 09/07/24 09/07/24 09/08/24 15:00 23:00 07:00 Intake Total 323.8 ml 0 ml 1400 ml Output Total 1950 ml Balance 323.8 ml 0 ml -550 ml objective Gen.: Patient lying in bed in no apparent distress. On room air. Head: Normocephalic, atraumatic. Eyes: EOMI/PERRLA. Ears: Normal hearing. Normal anatomy. Neck/trachea: Trachea midline, supple. Nose: Normal external anatomy. Mouth: Moist mucous membranes. Chest: Decreased air entry bilaterally. No wheezing or rhonchi. Cardiovascular: Positive S1, positive S2. Regular rate and rhythm. Abdomen: Positive bowel sounds in all 4 quadrants. Soft, non-tender, non- distended. : Deferred. Rectal: Deferred. Skin: Warm, dry. Intact. Extremities: 2+ radial pulses bilaterally. No lower extremity edema. Neuro: Awake, alert, oriented x3. No gross motor or sensory deficits. Cranial nerves II through XII intact. Gait not assessed. laboratory and microbiology Laboratory Tests 09/07/24 03:33 Test 09/07/24 03:33 Range/Units Serum Glucose 105 74-106 mg/dL Assessment/Plan Impression: Atrial fibrillation w/ RVR ST elevation myocardial infarction Nicotine dependence Pulmonary edema/interstitial lung opacities Leukocytosis Hyponatremia Elevated D-dimer Pneumonia, likely gram negative Obesity BMI 30 Events: Breathing on room air. Supplemental oxygen PRN Pt desaturates while sleeping - recommend outpatient sleep study CXR reviewed, demonstrates interstitial opacities. Off dobutamine drip Continue abx - Zosyn and doxycycline. Incentive spirometry WBC is within normal limits. Patient is stable for discharge from the pulmonary standpoint. Obtain repeat CXR in 6-8 weeks to assess for interval changes. Labs and imaging reviewed. Rest of plan as noted below. Plan: Supplemental oxygen Titrate to keep O2 sats above 92%. Continue antibiotics Monitor renal function. Monitor electrolytes. Supplement as necessary. Monitor ins and outs. WBC is wnl GI prophylaxis - Protonix BID DVT prophylaxis. Prognosis: Poor given patient's multiple co-morbidities. Rest of plan per hospitalist and other consultants. A total of 51 minutes of clinical care time was spent reviewing the patient record, examining the patient, making a diagnostic and therapeutic plan, discussing this plan with the medical personnel, following up on diagnostic studies and following the patient for clinical stability excluding any and all procedures. At least 50% of this time was spent in direct, [id number] contact. Thank you, Dr. Green, for allowing me to participate in this patient's care. Further recommendations will depend on the patient's clinical course. Please do not hesitate to contact me if you have any questions or concerns. This medical document was created using an electronic medical record system with [employer] dictation system. Although these documentations are being carefully reviewed, there may still be some phonetic and typographical changes. The errors are purely typographical, due to imperfection on the software program, and do not reflect any compromise in the patient's medical care. Dietary Evaluation Review Comments: 1) Continue curren tplan of care Expected Outcomes/Goals: F/U in 3-5 days Plan discussed with: Patient, Other (REGINALD Witt) CHRIS LEE MD Sep 08, 2024 22:10
== END 2024-09-08 18:40 | disposition home or self-care (01) | DRG 228 ==
LOC: ER 19:08 → EDBD 19:08 → TELE 20:54 → ICU WEST 23:00 → CATH ICU 09-07 07:40 → ICU WEST 09-07 07:56 → TELE-CENTR 09-07 16:37
PROVIDERS: ADMIT Specialist; ATTEND Specialist
PROC: 4A023N7 Measurement of Cardiac Sampling and Pressure, Left Heart, Percutaneous Approach (ICD-10-PCS; 2024-09-04)
PROC: B211YZZ Fluoroscopy of Multiple Coronary Arteries using Other Contrast (ICD-10-PCS; 2024-09-04)
PROC: B215YZZ Fluoroscopy of Left Heart using Other Contrast (ICD-10-PCS; 2024-09-04)
PROC: 5A1223Z Performance of Cardiac Pacing, Continuous (ICD-10-PCS; 2024-09-04)
PROC: 04HY32Z Insertion of Monitoring Device into Lower Artery, Percutaneous Approach (ICD-10-PCS; 2024-09-04)
PROC: B241ZZ3 Ultrasonography of Multiple Coronary Arteries, Intravascular (ICD-10-PCS; 2024-09-04)
PROC: 05HC33Z Insertion of Infusion Device into Left Basilic Vein, Percutaneous Approach (ICD-10-PCS; 2024-09-05)
PROC: B54NZZA Ultrasonography of Left Upper Extremity Veins, Guidance (ICD-10-PCS; 2024-09-05)
PROC: 02HK3NZ Insertion of Intracardiac Pacemaker into Right Ventricle, Percutaneous Approach (ICD-10-PCS; principal; 2024-09-07)
DX: I49.5 Sick sinus syndrome (principal); Z00.6 Encounter for examination for normal comparison and control in clinical research program; I21.29 ST elevation (STEMI) myocardial infarction involving other sites; J18.9 Pneumonia, unspecified organism; E87.1 Hypo-osmolality and hyponatremia; J81.1 Chronic pulmonary edema; I42.0 Dilated cardiomyopathy; E66.9 Obesity, unspecified; F17.210 Nicotine dependence, cigarettes, uncomplicated; I48.0 Paroxysmal atrial fibrillation; M54.9 Dorsalgia, unspecified; Z68.30 Body mass index [BMI] 30.0-30.9, adult; Z80.0 Family history of malignant neoplasm of digestive organs; Z79.899 Other long term (current) drug therapy
CPT/HCPCS: 33210; 33274; 36415; 71045; 80048; 80053; 80307; 81001; 83605; 83690; 83735; 83880; 84439; 84443; 84484; 85007; 85025; 85027; 85379; 85610; 85730; 87040; 87070; 87081; 87086; 87205; 92978; 93005; 93306; 93458; 99152; 99153; 99291; C1751; C1887; G0378; J2250; J2405; J2470; J2543; J3480; Q9967

== ENCOUNTER 2025-05-10 07:42 | Day surgery (SDC) | payer OTHER, MEDICAID ==
[~2025-05-10] VITALS: Ht 175.3 cm; Wt 104.3 kg
[~2025-05-10 07:42] MED LIST: ASPI-543 PO
[2025-05-10] MEDS: IODIXANOL 320MG/ML 100ML BTL IV ONE (09:17)
[2025-05-10] MEDS ORDERED: VERAPAMIL 2.5MG/ML INJ 2ML VIAL IV ONE (09:46)
[2025-05-10] MEDS ORDERED: fentaNYL CITRATE 100 MCG/2 ML VL ONE (09:46)
[2025-05-10] MEDS ORDERED: ANGIOMAX 250 MG VIAL IV ONE (09:46)
[2025-05-10] MEDS ORDERED: HEPARIN SODIUM (PORCINE) 5000 UNITS/ML 1ML VIAL ONE (09:46)
[2025-05-10] MEDS ORDERED: SODIUM CHL 0.9% 0 ML ONE (09:47)
[2025-05-10] MEDS ORDERED: MIDAZOLAM HCL 2MG/2ML 2ml VIAL (1mg/ml) ONE (09:47)
[2025-05-10] MEDS ORDERED: LIDOCAINE 2%HCL (LOCAL ANESTH.) INJ 20ML MDV ONE (09:47)
[2025-05-10 10:19] VITALS: BP 141/85; PULSE 58; RESP 16
--- NOTE | 2025-05-10 10:23 | DVHOP2 ---
Operative Report Operative Report CARDIAC PHYSICAL THERAPIST TECHNICIAN PROCEDURE REPORT [place], [place] Date of Service: 04/1525 Head Stock Operator: Kristina Calvillo MD PROCEDURES PERFORMED: Coronary angiogram, left heart catheterization, conscious sedation administration and supervision, less than 15 minutes; fluoroscopy use and interpretation. PREOPERATIVE DIAGNOSES: Abnormal stress test with CCS class 3 angina, POSTOP DIAGNOSIS: NICM DESCRIPTION OF PROCEDURE: The patient or appropriate family signed informed consent understanding the risks, benefits and alternatives of the procedure, they wished to proceed. The patient was brought to the cardiac slab miller operator in n.p.o. state. The patient was prepped in a sterile fashion. Sedation was used per cardiac cath protocol. I administered 2 mL of 2% lidocaine to the right wrist. With an antegrade front wall puncture. I cannulated the right radial artery and placed a 6-[place] Glides[place]ath slender. Next, an intra-arterial spasmolytic was administered. Next, a - 6French [place] catheter were used for coronary angiogram and LVEDP measurement and pressure pullback. At the completion of procedure, all guides and wires were removed, and there were no immediate complications. FINDINGS: RCA: Moderate non dominant vessel off the right sinus of Valsalva, there is no severe flow limiting stenosis. LEFT MAIN: very large size left main, it bifurcates into LAD and circumflex. no stenosis CIRCUMFLEX: very large dominant caliber vessel coming off the left main with no flow limiting stenosis. LAD: LAD is a moderate caliber vessel coming of the left main. no stenosis LVEDP of 20 mmhg CONCLUSIONS: 1. No severe cad noted 2. pt has ILR placed by another provider, routine eval KRISTINA CALVILLO MD May 10, 2025 10:23
[2025-05-10 10:35] VITALS: BP 138/86; O2SAT 98
[2025-05-10 10:45] VITALS: BP 136/98; O2SAT 97
[2025-05-10 11:00] VITALS: BP 144/92; O2SAT 97
[2025-05-10 11:15] VITALS: BP 120/74; O2SAT 98
[2025-05-10 12:20] VITALS: BP 124/78; O2SAT 98
== END 2025-05-10 12:25 | disposition home or self-care (01) ==
LOC: CATH 07:42
PROVIDERS: ATTEND Internal Medicine
DX: R94.39 Abnormal result of other cardiovascular function study (principal); I42.8 Other cardiomyopathies; I20.89 Other forms of angina pectoris; I25.2 Old myocardial infarction; F17.210 Nicotine dependence, cigarettes, uncomplicated; Z79.82 Long term (current) use of aspirin; Z82.49 Family history of ischemic heart disease and other diseases of the circulatory system; Z80.0 Family history of malignant neoplasm of digestive organs
CPT/HCPCS: 93458; C1769; C1887; C1894; J1644; J2250; J3010; J7030; Q9967; 99152